=== PATIENT | female | born 1960 | race Caucasian/White ===

== ENCOUNTER → 2017-04-10 | Outpatient (REF) | payer OTHER, BC ==
[2017-04-10 19:50] LABS: INR 0.97
[2017-04-10 19:51] LABS: PARTIAL THROMBOPLASTIN TIME 33.2 SECONDS (26.8-37.9)
[2017-04-12 11:06] LABS: CARCINOEMBRYONIC ANTIGEN 0.6 NG/ML (<2.5)
== END ==
LOC: M LAB REF 16:31
DX: C50.919 Malignant neoplasm of unspecified site of unspecified female breast (principal)

== ENCOUNTER → 2017-04-16 | Outpatient (CLI) | payer OTHER ==
[~2017-04-16] MED LIST: LIDOCAINE 2% MDV 20 ML VIAL As Ordered; ceFAZolin 1GM INJ (J0690 PER 500MG) As Ordered
== END | disposition home or self-care (01) ==
LOC: M IRPRO 09:54
DX: C23 Malignant neoplasm of gallbladder (principal)
CPT/HCPCS: 36561

== ENCOUNTER → 2018-01-13 | Outpatient (CLI) | payer OTHER ==
[~2018-01-13] MED LIST changes: +GASTROGRAFIN SOLUTION 30ML (Q9963) As Ordered; +ISOVUE-370 76% 100ML VIAL (Q9967) As Ordered; -LIDOCAINE 2% MDV 20 ML VIAL As Ordered; -ceFAZolin 1GM INJ (J0690 PER 500MG) As Ordered
== END ==
LOC: M RAD 07:52
DX: C23 Malignant neoplasm of gallbladder (principal); Z97.8 Presence of other specified devices; Z98.890 Other specified postprocedural states
CPT/HCPCS: Q9963

== ENCOUNTER → 2018-09-15 | Outpatient (CLI) | payer OTHER ==
[~2018-09-15] MED LIST changes: +ACETAMINOPHEN 325 MG TAB As Ordered ONE; +EPIP0.3I2 IM; -GASTROGRAFIN SOLUTION 30ML (Q9963) As Ordered; -ISOVUE-370 76% 100ML VIAL (Q9967) As Ordered; +LIDOCAINE 1% MDV 20ML VIAL As Ordered ONE; +XARE15TA PO
[2018-09-15 10:57] VITALS: BP 119/69
--- NOTE | 2018-09-16 08:16 | REP ---
Ultrasound-guided liver biopsy This procedure was performed by Merlyn Leach [facility], [place], under the personal supervision of Dr. Harrington. The risks and benefits of the procedure were explained to the patient and informed consent was obtained both verbally and written. Directly prior to the start of the procedure, a formal timeout was done in the procedure room. The right lobe liver mass was localized using ultrasound guidance. The skin was prepped and draped in a sterile fashion. 15 ml of 1% lidocaine was used as a local anesthetic. Using ultrasound guidance a small skin chris was made and a 19/20 gauge coaxial needle biopsy system was inserted and advanced into the liver. 4 core biopsy samples were obtained and sent to the lab. The patient tolerated the procedure well and there were no immediate complications. After the appropriate monitored convalescence the patient was discharged home from the department. Reviewed by MICAH Millan 09/15/2018 10:18 A Electronically Signed by Cornelio Harrington MD 09/15/2018 12:55 P
== END ==
LOC: M IRPRO 08:07
PROVIDERS: ATTEND Internal Medicine Hematology & Oncology
DX: C22.0 Liver cell carcinoma (principal)

== ENCOUNTER → 2018-10-20 | Outpatient (CLI) | payer OTHER ==
[~2018-10-20] MED LIST changes: -ACETAMINOPHEN 325 MG TAB As Ordered ONE; -LIDOCAINE 1% MDV 20ML VIAL As Ordered ONE; +PROHANCE 279.3MG/ML 15ML VIAL (A9576) As Ordered ONE
--- NOTE | 2018-10-21 11:01 | REP ---
MRI ABDOMEN WITHOUT AND WITH INTRAVENOUS GADOLINIUM: HISTORY: Restage liver cancer. Metastatic gallbladder adenocarcinoma. COMPARISON: CT study August 04, 2018. TECHNIQUE: Axial and coronal T1- and T2-weighted scans include spin-echo, fast spin-echo, diffusion weighted, gradient-echo, in and [id number], and dynamic postcontrast T1 fat sat images. Gadolinium enhancement dose is 13 mL of intravenous ProHance. MRI FINDINGS: There is a 3.7 x 2.2 x 2.6 cm mass along the subcapsular margin of the liver anteriorly at the junction right of right and left lobes . This corresponds with the lesion visible on CT study from August 04, 2018 and the lesion biopsied by ultrasound-guided needle biopsy technique. There is some restricted diffusion within the lesion. There is a subtle contour indentation over the lesion which may be diaphragmatic slip. There is enhancement in and adjacent to the lesion on dynamically acquired sequential post contrast images in a somewhat irregular predominantly peripheral pattern. No other focal hepatic lesion is seen. No adrenal lesion is observed. Spleen is homogeneous. No renal mass is seen. No retroperitoneal adenopathy is observed. No pancreatic lesion is seen. IMPRESSION: There is an apparently solitary 3.7 cm heterogeneously enhancing mass in the periphery of the right lobe of the liver anteriorly corresponding to recently biopsied lesion. No other lesion is seen. Electronically Signed by Dustin Fields MD 10/21/2018 07:11 P
== END ==
LOC: M RAD 16:25
PROVIDERS: ATTEND Internal Medicine Hematology & Oncology
DX: C22.9 Malignant neoplasm of liver, not specified as primary or secondary (principal); Z86.000 Personal history of in-situ neoplasm of breast
CPT/HCPCS: A9576; C8902

== ENCOUNTER → 2018-11-10 | Outpatient (CLI) | payer OTHER ==
[~2018-11-10] MED LIST changes: +ELIQ2.5T PO; +GASTROGRAFIN SOLUTION 30ML (Q9963) As Ordered ONE; +ISOVUE-370 76% 100ML VIAL (Q9967) As Ordered ONE; +ONDA8TAB7 PO; +PROC10TA4 PO; -PROHANCE 279.3MG/ML 15ML VIAL (A9576) As Ordered ONE
--- NOTE | 2018-11-11 08:14 | REP ---
CT ABDOMEN AND PELVIS WITHOUT AND WITH IV CONTRAST: WITH ORAL CONTRAST. HISTORY: Restaging gallbladder carcinoma. Chemotherapy for recurrent hepatic metastatic disease. Most recent MRI study showed a 3.7 cm heterogeneously enhancing mass in the periphery of the right lobe of the liver anteriorly. Comparison CT study is from January 13, 2018. Comparison MRI exam is from October 20, 2018. CT CONTRAST DOSE: 75 mL of intravenous Isovue 370. CT FINDINGS: The recently identified 3.7 cm hepatic mass lesion is again seen. On today's noncontrast CT acquisition, the lesion measures 3.5 cm in greatest diameter with a small subcentimeter rim of surrounding low density edema. Postcontrast imaging shows heterogeneous enhancement. The lesion is essentially unchanged. No new low density lesion is appreciated. No new area of abnormal enhancement is seen within the liver. Spleen remains unremarkable. No adrenal lesion is seen. No pancreatic abnormalities observed. Kidneys enhance symmetrically and are morphologically intact. No retroperitoneal mass or adenopathy is seen. Uterus is unremarkable. No ovarian abnormality is seen. Urinary bladder is intact. No abdominal wall defect is observed. IMPRESSION: Heterogeneously enhancing mass in the anterior aspect of the liver is again seen essentially unchanged in size. No new hepatic lesion is seen. No other evidence of intra-abdominal recurrence or metastasis seen. Electronically Signed by Dustin Fields MD 11/11/2018 09:08 A
--- NOTE | 2018-11-11 09:04 | REP ---
CT CHEST WITH IV CONTRAST: HISTORY: Staging gallbladder carcinoma. COMPARISON STUDY: October 30, 2017. January 13, 2018 CT study is also reviewed. CT CONTRAST DOSE: 75 mL of intravenous Isovue 370. CT FINDINGS: There is an area of post radiation fibrosis along the anterolateral pleural surface of the right upper lobe unchanged in this patient with a remote prior history of breast carcinoma. There is a dystrophic area of soft tissue calcification in the right superior breast unchanged. A right-sided Ddrryu-U-Vihy catheter is noted. There is no evidence of axillary lymphadenopathy or chest wall mass lesion. No hilar or mediastinal mass or adenopathy is observed. No filling defect is seen in the pulmonary arterial tree today. There is no evidence of pleural effusion. No pulmonary nodule is appreciated. No bony destructive lesion is seen. IMPRESSION: No evidence of active disease in the chest. Electronically Signed by Dustin Fields MD 11/11/2018 09:13 A
== END ==
LOC: M RAD 12:41
PROVIDERS: ATTEND Internal Medicine Hematology & Oncology
DX: C23 Malignant neoplasm of gallbladder (principal)

== ENCOUNTER → 2019-03-26 | Outpatient (CLI) | payer OTHER ==
[~2019-03-26] MED LIST changes: +ONDA8TAB10 PO; -ONDA8TAB7 PO
--- NOTE | 2019-03-27 05:32 | REP ---
Clinical: History of gallbladder cancer. Technique: Axial contrast enhanced images from the thoracic inlet to the upper abdomen with coronal and sagittal re-formations using 100 ml Isovue 370 intravenous contrast material. Comparison: 11/10/2018. Findings: By apical and anterior subpleural right upper lobe scarring is again appreciated and unchanged. The lung shaw are otherwise well aerated and essentially clear. No focal consolidation. No effusion. No pneumothorax. Tracheobronchial tree is patent. No adenopathy. [id number] identified with tip in the SVC. Mediastinum demonstrates relatively normal thoracic aorta, pulmonary vasculature and heart/pericardium. Surrounding musculoskeletal structures without focal abnormality. Impression: Minimal stable scarring. No acute mediastinal or pleuroparenchymal process. No evidence for metastatic disease. Electronically Signed by Chino Chance MD 03/27/2019 05:23 A
--- NOTE | 2019-03-27 05:44 | REP ---
Clinical: History of gallbladder cancer. Technique: Axial precontrast, contrast enhanced, and delayed images of the abdomen using oral (per protocol) and 100 ml Isovue 370 intravenous contrast material with coronal and sagittal re-formations. Comparison: 11/10/2018. Findings: 3.7 cm ill-defined rim enhancing lesion along the periphery of the medial left hepatic lobe with central low density presumed necrotic changes (images 22 - 38) has increased from prior examination. No further hepatic lesions identified. Spleen, pancreas, bilateral adrenal glands and kidneys are normal. Evidence of prior cholecystectomy noted. Visualized enteric system is without obstruction or obvious acute inflammatory process. No retroperitoneal adenopathy. Abdominal aorta without aneurysm or dissection. No ascites. No free air. Musculoskeletal structures are intact. Impression: Somewhat heterogeneous rim enhancing lesion in the liver with central necrotic changes appears increased in size from prior examination. Correlation and follow up including PET-CT may be warranted for further investigation. Electronically Signed by Chino Chance MD 03/27/2019 05:35 A
== END ==
LOC: M RAD 15:19
PROVIDERS: ATTEND Internal Medicine Hematology & Oncology
DX: C23 Malignant neoplasm of gallbladder (principal)
CPT/HCPCS: 71260; 74170; Q9963; Q9967

== ENCOUNTER → 2019-04-08 | Outpatient (CLI) | payer OTHER ==
[~2019-04-08] MED LIST changes: -GASTROGRAFIN SOLUTION 30ML (Q9963) As Ordered ONE; -ISOVUE-370 76% 100ML VIAL (Q9967) As Ordered ONE
--- NOTE | 2019-04-08 19:56 | REP ---
PET/CT: History: Gallbladder adenocarcinoma. Monitoring response to chemotherapy treatment. Comparisons: No comparison PET-CT. Comparison is made with CT study abdomen and pelvis and chest from March 26, 2019. TECHNIQUE: 47 minutes following the intravenous injection of a 9.22 mCi dose of F-18 FDG, three-dimensional PET scintigraphy is acquired from the skull base to the proximal thighs. Triplanar noncontrast CT scanning is acquired through the same anatomic range for attenuation correction, and image registration with scan parameters optimized to minimize radiation exposure to the patient. PET scintigraphy and CT datasets were fused and displayed on a workstation with multiplanar and projection display capability. PET/CT Findings: Head and neck soft tissues show no suspicious abnormality. No abnormal hypermetabolic pulmonary parenchymal uptake is seen. There is no abnormal hilar or mediastinal hypermetabolic uptake. The patient's known hepatic mass is markedly hypermetabolic. Maximum standard uptake value is 17.60. On the accompanying CT study, this hypodense lesion measures approximately 4.3 cm. It is similar in appearance to the noncontrast portion of the March 26, 2019 study. No other abnormal hepatic hypermetabolic uptake focus is seen. No abnormal hypermetabolic adenopathy is noted in the abdomen. The study is otherwise unremarkable. Impression: The known hepatic mass is quite hypermetabolic. No other abnormal hypermetabolic uptake is seen. Electronically Signed by Dustin Fields MD 04/09/2019 08:04 A
== END ==
LOC: M PLARAD 13:16
PROVIDERS: ATTEND Internal Medicine Hematology & Oncology
DX: C23 Malignant neoplasm of gallbladder (principal)
CPT/HCPCS: 78815; A9552

== ENCOUNTER → 2019-06-05 | Outpatient (CLI) | payer OTHER ==
[~2019-06-05] MED LIST changes: +CISP50VI IV; +GASTROGRAFIN SOLUTION 30ML (Q9963) As Ordered ONE; +ISOVUE-370 76% 100ML VIAL (Q9967) As Ordered ONE; +[UNRECOGNIZED DRUG - CODE] IV
--- NOTE | 2019-06-05 11:32 | REP ---
REASON: Followup breast carcinoma. COMPARISON: Multiple, the latest, 03/26/2019. CONTRAST: 100 Isovue 370. Mediastinum and pulmonary fausto are stable showing no evidence of a mass or adenopathy. The tip of the Mediport device is again seen within the superior vena cava status quo. There are no pleural or pericardial effusions. For a description of the imaged upper abdomen, please seen CT abdomen and pelvis report made the same day. Bone window technique throughout the exam shows no significant change in the appearance of the imaged osseous structures. There is no CT evidence of a definite lytic or blastic osseous lesion. Evaluation of the lung shaw shows no evidence of significant change in the appearance of the residual pleuroparenchymal scarring seen on multiple priors. No definite new abnormal nodules, masses, or opacities have developed. IMPRESSION: Essentially stable CT examination of the chest showing no evidence of acute disease as described above. Electronically Signed by Rayo Roper DO 06/05/2019 01:39 P
--- NOTE | 2019-06-05 11:44 | REP ---
REASON: History of carcinoma of the breast. COMPARISON: Multiple, the latest 03/26/2019. CONTRAST: 100 mL Isovue 370. For a description of the lung bases, please seen CT examination of the chest report also made today. There is a heterogeneously and ring-enhancing lesion seen in the medial segment of the left lobe of the liver, which has increased in size from the latest prior when it measured approximately 3.8 x 1.9 cm with today's measurement being 4.2 x 3.1 cm. No additional enhancing hepatic masses are noted. The spleen, pancreas, adrenal glands, and kidneys are unchanged and again seen to be within normal limits. The abdominal aorta and para-aortic regions are unchanged. No periaortic adenopathy has developed. The intra-abdominal bowel loops and their mesenteries are again seen to be within normal limits. There is no free fluid or free air. There is a tiny midline ventral hernia in the supraumbilical region, the aperture of which is approximately 1 cm and through which only a small amount of mesentery protrudes. Bone window technique throughout the exam shows the osseous structures to be stable and intact. IMPRESSION: 1. The hepatic lesion, as described above, has increased in size suspicious for worsening metastasis. This needs to be correlated clinically with appropriate followup. Certainly, an hepatic abscess could potentially be responsible or at least in part responsible for the findings as well. Given the patient's history, metastatic disease worsening is favored. 2. There is tiny ventral hernia as described above. 3. Other findings as described above. Electronically Signed by Rayo Roper DO 06/05/2019 01:39 P
== END ==
LOC: M RAD 09:15
PROVIDERS: ATTEND Internal Medicine Hematology & Oncology
DX: Z01.818 Encounter for other preprocedural examination (principal); C23 Malignant neoplasm of gallbladder; Z85.3 Personal history of malignant neoplasm of breast
CPT/HCPCS: 71260; 74170; Q9963; Q9967

== ENCOUNTER → 2019-10-15 | Outpatient (CLI) | payer OTHER ==
[~2019-10-15] MED LIST changes: +ACET650T61 PO; -ISOVUE-370 76% 100ML VIAL (Q9967) As Ordered ONE; +ISOVUE-370 76% 100ML VIAL As Ordered ONE; +NEUR300C PO
--- NOTE | 2019-11-27 09:38 | REP ---
CT ABDOMEN AND PELVIS WITH IV AND ORAL CONTRAST HISTORY: Gallbladder cancer status post SBRT therapy. CT CONTRAST DOSE: 100 mL of intravenous Isovue-370. CT FINDINGS: Digital preliminary cassandra developer radiograph demonstrates mild gaseous distention of the stomach. There is a small right pleural effusion, which is a new finding when compared with the 06/05/2019 study. No pericardial or left pleural effusion is seen. There is volume loss in the treated portion of the left lobe of the liver. There is a 2.4 cm low density lesion here, which is decreased in size from 06/05/2019, when it measured 4.2 cm. This is consistent with posttreatment change. There is a granulomatous calcification along the liver capsule adjacent to this unchanged. There is some non-mass like low density in the adjacent liver parenchyma. No biliary ductal dilation is seen. No new liver mass is observed. However, there is celiac access lymphadenopathy, which has developed. There is a superior celiac node measuring 19 x 19 mm. A portacaval lymph node is seen to be enlarged measuring 15 x 21 mm. There is an enlarged lymph node between the head of the pancreas and the inferior vena cava, which is similar in size, 26 x 17 mm. No other adenopathy is appreciated. No splenic lesion or adrenal lesion is seen. No pancreatic mass is observed. No uterine or ovarian abnormality is seen. Urinary bladder is intact. Small and large bowel loops are unremarkable in the abdomen and pelvis. Normal appendix is seen in the right central abdomen. No ascites. IMPRESSION: Posttreatment changes in the liver. New small right pleural effusion. New celiac access and portacaval lymphadenopathy. Metastasis is suspected. MTDD
--- NOTE | 2019-11-27 09:39 | REP ---
CT CHEST WITH IV CONTRAST HISTORY: Gallbladder carcinoma status post radiation therapy. CT CONTRAST DOSE: 100 mL of intravenous Isovue-370. COMPARISON: 06/05/2019. CT FINDINGS: There is a new small right pleural effusion. There is a right-sided Infusaport catheter. There is a large calcification in the right superior breast soft tissues. Some subpleural fibrosis is seen in the right upper lobe anteriorly. These two findings are unchanged. There is mild linear density in the left lower lobe consistent with plate-like atelectasis. This is a new finding. No pulmonary nodule or mass lesion is seen. No hilar or mediastinal mass or adenopathy is observed. No vascular abnormality is seen in the mediastinum. A low density lesion is again noted in the liver improved in size. This will be described in detail on the CT abdomen study. IMPRESSION: New small right pleural effusion and plate-like atelectasis left lower lobe. No pulmonary nodule or mass lesion seen. MTDD
== END ==
LOC: M RAD 09:20
PROVIDERS: ATTEND Radiology Radiation Oncology
DX: C23 Malignant neoplasm of gallbladder (principal); J90 Pleural effusion, not elsewhere classified; R59.9 Enlarged lymph nodes, unspecified; R91.8 Other nonspecific abnormal finding of lung field; Z95.828 Presence of other vascular implants and grafts
CPT/HCPCS: 71260; 74177; J1642; Q9963; Q9967

== ENCOUNTER → 2019-12-07 | Outpatient (CLI) | payer OTHER ==
[~2019-12-07] MED LIST changes: -ACET650T61 PO; -GASTROGRAFIN SOLUTION 30ML (Q9963) As Ordered ONE; -ISOVUE-370 76% 100ML VIAL As Ordered ONE
--- NOTE | 2019-12-14 16:45 | REP ---
PET/CT HISTORY: Monitoring response to chemotherapy. Primary gallbladder malignancy status post resection with recurrence status post chemotherapy and SBRT. COMPARISON: Comparison CT study of the chest, abdomen, and pelvis October 15, 2019. Comparison PET/CT April 08, 2019. TECHNIQUE: Sixty minutes following the intravenous injection of an 8.06 millicurie dose of F18 FDG, three dimensional PET/CT imaging was acquired from the skull base to the proximal thighs. PET/CT FINDINGS: The previously noted hypermetabolic mass in the left lobe of the liver seen on the PET/CT study from April 08, 2019, has resolved post SBRT. The recent CT study of the abdomen from October 15, 2019, showed at least three suspicious enlarged celiac axis lymph nodes in the upper abdomen, portacaval region. These appear to have regressed and are barely visible now on todays accompanying CT study. On todays PET/CT, there is minimally hypermetabolic uptake at the site of the portacaval node, maximum standard uptake value 2.98. There is minimally hypermetabolic uptake adjacent to the duodenum at the site of one of the other lymph nodes, maximum standard uptake value 2.93. These nodes are all but resolved morphologically. However, todays PET/CT study shows an increase in the right pleural effusion, and there is mildly increased FDG accumulation in the right pleural space, maximum standard uptake value ranges up to 2.54 in the right pleural space. There is a stable area of somewhat nodular subpleural fibrosis in the right upper lobe post treatment for this patient's remote prior breast cancer. Nonhypermetabolic uptake is seen in this region, maximum SUV value 1.48. IMPRESSION: The recently identified hypermetabolic liver mass and the more recently identified suspicious celiac axis and portacaval adenopathy have both regressed. There is minimal residual hypermetabolic uptake in the area of the celiac access nodes. There has been an interval increase in the size of the right pleural effusion, and there is some low level hypermetabolic uptake in the right pleural space. Otherwise negative. MTDD
== END ==
LOC: M PLARAD 10:27
PROVIDERS: ATTEND Radiology Radiation Oncology
DX: C23 Malignant neoplasm of gallbladder (principal); Z92.21 Personal history of antineoplastic chemotherapy; Z92.3 Personal history of irradiation
CPT/HCPCS: 78815; A9552

== ENCOUNTER → 2020-01-06 | Outpatient (CLI) | payer OTHER ==
[~2020-01-06] MED LIST changes: +ACET650T61 PO; +LIDOCAINE 1% MDV 20ML VIAL As Ordered ONE
--- NOTE | 2020-01-06 12:58 | REP ---
INDICATION: RT PLEURAL EFFUSION/FILE ROOM. COMPARISON: CT 10/15/2019. TECHNIQUE: Real-time sonographic evaluation of pleural space performed bilaterally prior to a scheduled right thoracentesis. FINDINGS: Only trace pleural fluid is visualized in the right pleural space at the costophrenic angle. This is not amenable to thoracentesis, as the risks outweigh the benefits. IMPRESSION: Trace right pleural effusion. The scheduled right thoracentesis is canceled. <Electronically signed by Cornelio Harrington > 01/06/20 [id number]
== END ==
LOC: M IRPRO 11:55
PROVIDERS: ATTEND Specialist
DX: J90 Pleural effusion, not elsewhere classified (principal); Z53.09 Procedure and treatment not carried out because of other contraindication; J44.9 Chronic obstructive pulmonary disease, unspecified; I10 Essential (primary) hypertension; E11.9 Type 2 diabetes mellitus without complications; G47.33 Obstructive sleep apnea (adult) (pediatric); Z88.2 Allergy status to sulfonamides; Z79.01 Long term (current) use of anticoagulants; Z88.8 Allergy status to other drugs, medicaments and biological substances

== ENCOUNTER → 2020-04-11 | Outpatient (CLI) | payer OTHER ==
[~2020-04-11] MED LIST changes: +GASTROGRAFIN SOLUTION 30ML (Q9963) As Ordered ONE; +ISOVUE-370 76% 100ML VIAL As Ordered ONE; -LIDOCAINE 1% MDV 20ML VIAL As Ordered ONE
--- NOTE | 2020-04-12 08:55 | REP ---
INDICATION: GB CA. COMPARISON: 10/15/2019 TECHNIQUE: Axial contrast-enhanced images from the lung bases to the pubic symphysis using oral and 100 cc Isovue 370 intravenous contrast material. Coronal and sagittal reformations obtained along with delayed images of the abdomen. This CT examination was performed using the following dose reduction techniques: Automated exposure control, adjustment of mA and/or kv according to the patient's size, and the use of iterative reconstruction technique. FINDINGS: Current examination demonstrates a small amount of suspected perihepatic fluid along the anterior margin of the liver with an adjacent inseparable fluid collection along the subcapsular medial left lobe which currently measures 14 mm in maximal diameter and has decreased in size from prior examination when measuring 27 mm diameter. This may represent small resolving hepatic abscess, but the adjacent perihepatic fluid appears slightly more heterogeneous and minimally increased from prior examination concerning for active pathology. Spleen, pancreas, bilateral adrenal glands and kidneys are normal. Previously identified adenopathy in the celiac axis has resolved. The enteric system is without obstruction or acute inflammatory process. Normal terminal ileum and appendix are identified in the right lower quadrant. Scattered colonic and sigmoid diverticula noted without acute diverticulitis. Pelvis demonstrates normal bladder and age-appropriate uterus/adnexa. No ascites. No free air. No obvious intraperitoneal or retroperitoneal adenopathy. Abdominal aorta without aneurysm or dissection. Musculoskeletal structures appear intact and without acute osseous abnormality lung bases are relatively clear and the previously noted small right pleural effusion has resolved. IMPRESSION: 1. The small subcapsular collection within the left hepatic lobe has decreased in size. However, there is subtle increase in the minimally high dense subcapsular hepatic fluid. Active pathology including malignancy/metastatic disease related to known gallbladder cancer cannot be excluded. 2. Celiac axis adenopathy has resolved. No new adenopathy or abdominopelvic mass lesion noted. 3. Nonacute findings as above. No ascites. No focal inflammatory stranding. No adenopathy. No free air. <Electronically signed by Chino Chance > 04/12/20 [id number]
== END ==
LOC: M RAD 11:05
PROVIDERS: ATTEND Specialist
DX: C23 Malignant neoplasm of gallbladder (principal)
CPT/HCPCS: 74177; Q9963; Q9967

== ENCOUNTER → 2020-06-06 | Outpatient (CLI) | payer OTHER ==
[~2020-06-06] MED LIST changes: -GASTROGRAFIN SOLUTION 30ML (Q9963) As Ordered ONE; -ISOVUE-370 76% 100ML VIAL As Ordered ONE; +PROHANCE 279.3MG/ML 15ML VIAL As Ordered ONE
--- NOTE | 2020-06-06 17:53 | REP ---
INDICATION: LIVER METS. COMPARISON: CT 04/11/2020 and 10/15/2019, PET-CT 12/07/2019. TECHNIQUE: Multiple sequences obtained in the axial coronal planes prior to and following the intravenous administration of 13 mL ProHance. FINDINGS: Once again there are post treatment changes in the liver. There is a nonenhancing cystic area at the anterior margin of the medial segment of the left lobe which continues has decreased in size compared to prior CT scan 10/15/2019, although it is not significantly changed since the most recent CT of 04/11/2020. There is mild diffuse enhancement of the anterior liver capsule, which gradually increases on more delayed post-contrast sequences. This is most consistent with post treatment fibrosis. No suspicious arterial phase enhancement is seen and there is no enhancing mass. There is a tiny right pleural effusion. Spleen, adrenals, pancreas and kidneys are unremarkable and unchanged. No adenopathy or free fluid is seen in the abdomen. There is no evidence of biliary dilatation. IMPRESSION: Once again there are post treatment changes anteriorly predominantly involving the medial segment of the left lobe of the liver as discussed above. Mild ill-defined enhancement in this region gradually increases on more delayed post-contrast images consistent with fibrotic changes along the anterior capsule of the liver. There is no suspicious enhancing mass or arterial phase enhancement. <Electronically signed by Cornelio Harrington > 06/06/20 [id number]
== END ==
LOC: M RAD 14:48
PROVIDERS: ATTEND Radiology Radiation Oncology
DX: C23 Malignant neoplasm of gallbladder (principal); R91.8 Other nonspecific abnormal finding of lung field
CPT/HCPCS: 74183; A9576

== ENCOUNTER → 2020-11-25 | Outpatient (CLI) | payer OTHER ==
[~2020-11-25] MED LIST changes: +ACET325C5 PO
--- NOTE | 2020-11-25 11:00 | REP ---
INDICATION: GB CANCER. COMPARISON: 06/06/2020. TECHNIQUE: Multiple sequences obtained in the axial and coronal planes prior to and following the intravenous administration of 13 mL ProHance. FINDINGS: Post treatment changes in the liver appear stable. There is no liver mass identified. There is no abnormal enhancement. Spleen is normal in size with no intrinsic abnormality. The adrenal glands and pancreas are normal. The kidneys demonstrate no abnormality. I see no adenopathy or free fluid in the abdomen. The patient has had a cholecystectomy. There is no biliary dilatation. IMPRESSION: Post treatment changes of the liver with no suspicious enhancing mass or arterial phase enhancement. <Electronically signed by Cornelio Harrington > 11/25/20 [id number]
== END ==
LOC: M RAD 08:47
PROVIDERS: ATTEND Radiology Radiation Oncology
DX: C23 Malignant neoplasm of gallbladder (principal); Z90.49 Acquired absence of other specified parts of digestive tract
CPT/HCPCS: 74183; A9576

== ENCOUNTER → 2021-06-01 | Outpatient (CLI) | payer OTHER ==
[~2021-06-01] MED LIST changes: +ONDA-84 PO; -ONDA8TAB10 PO; -PROC10TA4 PO; +PROC10TA5 PO
== END ==
LOC: M RAD 07:15
PROVIDERS: ATTEND Radiology Radiation Oncology
DX: C23 Malignant neoplasm of gallbladder (principal); Z90.49 Acquired absence of other specified parts of digestive tract
CPT/HCPCS: 74183; A9576

== ENCOUNTER → 2021-08-29 | Outpatient (POV) | payer OTHER ==
[~2021-08-29] VITALS: Ht 165.1 cm; Wt 65.9 kg
[~2021-08-29] MED LIST changes: -PROHANCE 279.3MG/ML 15ML VIAL As Ordered ONE
[2021-08-29 07:50] VITALS: BP 142/86
== END ==
LOC: M IRPOV 07:43
PROVIDERS: ATTEND Radiology Diagnostic Radiology
DX: Z45.2 Encounter for adjustment and management of vascular access device (principal); Z79.01 Long term (current) use of anticoagulants; Z85.09 Personal history of malignant neoplasm of other digestive organs; Z88.1 Allergy status to other antibiotic agents; Z88.2 Allergy status to sulfonamides; Z92.21 Personal history of antineoplastic chemotherapy; Z91.010 Allergy to peanuts

== ENCOUNTER → 2021-09-05 | Outpatient (CLI) | payer OTHER | LOC: M LABSMTC 09:09 | PROVIDERS: ATTEND Anesthesiology | DX: Z01.812 Encounter for preprocedural laboratory examination (principal); Z20.822 Contact with and (suspected) exposure to COVID-19 ==

== ENCOUNTER → 2021-09-21 | Outpatient (CLI) | payer OTHER ==
[~2021-09-21] MED LIST changes: +ASPI81CH33 PO; +LIDOCAINE 1% MDV 20ML VIAL As Ordered ONE; +MIDAZOLAM INJ 2MG/2ML VIAL (J2250 PER 1MG) As Ordered ONE; +NS 1,000 ML IV SCH; +ceFAZolin 2 GM/D5W 50 ML IV BAG (J0690 PER 500MG) As Ordered ONE; +ceFAZolin SOD 2 GM in IV 1 EA IV ONE; +diphenhydrAMINE 50MG/ML VIAL (J1200) As Ordered ONE; +fentaNYL 100 MCG/2 ML INJECTION As Ordered ONE
[2021-09-21 14:40] VITALS: BP 110/63
== END ==
LOC: M IRPRO 10:30
PROVIDERS: ATTEND Radiology Diagnostic Radiology
DX: C78.7 Secondary malignant neoplasm of liver and intrahepatic bile duct (principal); Z45.2 Encounter for adjustment and management of vascular access device; Z79.82 Long term (current) use of aspirin; Z88.1 Allergy status to other antibiotic agents; Z88.2 Allergy status to sulfonamides; Z88.8 Allergy status to other drugs, medicaments and biological substances; Z91.018 Allergy to other foods
CPT/HCPCS: 36590; 99152; J0690; J1200; J1644; J2250; J3010

== ENCOUNTER → 2021-10-11 | Outpatient (CLI) | payer OTHER ==
[~2021-10-11] MED LIST changes: -LIDOCAINE 1% MDV 20ML VIAL As Ordered ONE; -MIDAZOLAM INJ 2MG/2ML VIAL (J2250 PER 1MG) As Ordered ONE; -NS 1,000 ML IV SCH; +PROHANCE 279.3MG/ML 15ML VIAL ONE; -ceFAZolin 2 GM/D5W 50 ML IV BAG (J0690 PER 500MG) As Ordered ONE; -ceFAZolin SOD 2 GM in IV 1 EA IV ONE; -diphenhydrAMINE 50MG/ML VIAL (J1200) As Ordered ONE; -fentaNYL 100 MCG/2 ML INJECTION As Ordered ONE
== END ==
LOC: M PLAIMG 12:58
PROVIDERS: ATTEND Nurse Practitioner
DX: C23 Malignant neoplasm of gallbladder (principal)

== ENCOUNTER → 2022-01-05 | Outpatient (CLI) | payer OTHER ==
[~2022-01-05] MED LIST changes: -PROHANCE 279.3MG/ML 15ML VIAL ONE
== END ==
LOC: M WHC 10:12
PROVIDERS: ATTEND Specialist
DX: R74.8 Abnormal levels of other serum enzymes (principal); M85.89 Other specified disorders of bone density and structure, multiple sites; Z90.49 Acquired absence of other specified parts of digestive tract

== ENCOUNTER → 2022-03-06 | Outpatient (CLI) | payer OTHER ==
[~2022-03-06] MED LIST changes: +PROHANCE 279.3MG/ML 5ML VIAL ONE
== END ==
LOC: M PLAIMG 07:38
PROVIDERS: ATTEND Radiology Radiation Oncology
DX: C23 Malignant neoplasm of gallbladder (principal); Z90.49 Acquired absence of other specified parts of digestive tract
CPT/HCPCS: 74183; A9576

== ENCOUNTER → 2022-05-03 | Outpatient (CLI) | payer OTHER ==
[~2022-05-03] MED LIST changes: +BONI1TAB PO; -PROHANCE 279.3MG/ML 5ML VIAL ONE
== END ==
LOC: M LABSMTC 11:31
PROVIDERS: ATTEND Anesthesiology
DX: Z01.812 Encounter for preprocedural laboratory examination (principal)

== ENCOUNTER → 2022-05-03 | Outpatient (REF) | LOC: M LABSMTC 07:57 | PROVIDERS: ATTEND Anesthesiology | DX: Z53.9 Procedure and treatment not carried out, unspecified reason (principal) ==

== ENCOUNTER 2022-05-08 09:20 | Day surgery (SDC) | payer OTHER ==
[~2022-05-08] VITALS: Ht 165.1 cm; Wt 63.5 kg
[~2022-05-08 09:20] MED LIST changes: +NS 1,000 ML IV ONE
[2022-05-08] MEDS ORDERED: propofoL 200 MG/20 ML VIAL As Ordered ONE ×2 (11:08→11:16)
[2022-05-08] MEDS ORDERED: LIDOCAINE 2% 100MG/5ML SDV (FOR ANES.) As Ordered ONE (11:08)
[2022-05-08 11:41] VITALS: BP 123/77
== END 2022-05-08 11:50 | disposition home or self-care (01) ==
LOC: M OPP 09:20
PROVIDERS: ATTEND Internal Medicine Gastroenterology
DX: Z12.11 Encounter for screening for malignant neoplasm of colon (principal); Z80.0 Family history of malignant neoplasm of digestive organs; K63.5 Polyp of colon; K57.30 Diverticulosis of large intestine without perforation or abscess without bleeding; K64.4 Residual hemorrhoidal skin tags; K64.8 Other hemorrhoids; Z79.82 Long term (current) use of aspirin; Z79.899 Other long term (current) drug therapy; Z88.1 Allergy status to other antibiotic agents; Z88.2 Allergy status to sulfonamides; Z91.018 Allergy to other foods; Z85.05 Personal history of malignant neoplasm of liver; Z85.3 Personal history of malignant neoplasm of breast; Z85.09 Personal history of malignant neoplasm of other digestive organs; Z86.718 Personal history of other venous thrombosis and embolism; Z92.3 Personal history of irradiation; Z80.3 Family history of malignant neoplasm of breast

== ENCOUNTER → 2022-10-23 | Outpatient (CLI) | payer OTHER ==
[~2022-10-23] MED LIST changes: -NS 1,000 ML IV ONE; +PROHANCE 279.3MG/ML 15ML VIAL As Ordered ONE
== END ==
LOC: M RAD 12:23
PROVIDERS: ATTEND Radiology Radiation Oncology
DX: C23 Malignant neoplasm of gallbladder (principal); Z90.49 Acquired absence of other specified parts of digestive tract
CPT/HCPCS: 74183; A9576

== ENCOUNTER → 2024-04-28 | Outpatient (CLI) | payer OTHER ==
[~2024-04-28] VITALS: Ht 165.1 cm; Wt 57.0 kg
[~2024-04-28] MED LIST changes: +IBUP200C25 PO; +LIDO30CR18 TOP; +LIDOCAINE 1% MDV 20ML VIAL As Ordered ONE; +ONDA-284 PO; -PROHANCE 279.3MG/ML 15ML VIAL As Ordered ONE
[2024-04-28 10:20] VITALS: TEMP 98.7
[2024-04-28] MEDS: NS (Normal Saline) 0.9% 1,000 ML IV SCH (10:40)
[2024-04-28] MEDS: ceFAZolin SOD 2 GM in IV 1 EA IV ONE (12:05)
[2024-04-28] MEDS: MIDAZOLAM INJ 2MG/2ML VIAL IV PRN (12:25)
[2024-04-28] MEDS: fentaNYL 100 MCG/2 ML INJECTION IV PRN (12:27)
[2024-04-28] MEDS: LIDOCAINE 1% MDV 20ML VIAL IM ONE (12:28)
[2024-04-28] MEDS: SODIUM CHLORIDE 0.9% INJ 10 ML SYR IV SCH (12:37)
[2024-04-28 13:27] VITALS: BP 118/76; O2SAT 99
== END ==
LOC: M IRPRO 09:57
PROVIDERS: ATTEND Specialist
DX: C23 Malignant neoplasm of gallbladder (principal)
CPT/HCPCS: 36561; 99152; J0690; J1642; J2250; J3010

== ENCOUNTER → 2024-05-05 | Outpatient (CLI) | payer OTHER ==
[~2024-05-05] MED LIST changes: -LIDOCAINE 1% MDV 20ML VIAL As Ordered ONE
== END ==
LOC: M PLARAD 08:17
PROVIDERS: ATTEND Specialist
DX: C23 Malignant neoplasm of gallbladder (principal)
CPT/HCPCS: 78815; A9552

== ENCOUNTER → 2024-06-24 | Outpatient (CLI) | payer OTHER | LOC: M ONCR 15:05 | PROVIDERS: ATTEND General Practice | DX: C79.51 Secondary malignant neoplasm of bone (principal); C78.7 Secondary malignant neoplasm of liver and intrahepatic bile duct; C23 Malignant neoplasm of gallbladder; Z90.49 Acquired absence of other specified parts of digestive tract; Z85.3 Personal history of malignant neoplasm of breast; Z79.82 Long term (current) use of aspirin; Z79.899 Other long term (current) drug therapy; Z88.1 Allergy status to other antibiotic agents; Z88.2 Allergy status to sulfonamides; Z91.018 Allergy to other foods; Z92.21 Personal history of antineoplastic chemotherapy; Z92.29 Personal history of other drug therapy; Z92.3 Personal history of irradiation ==

== ENCOUNTER → 2024-07-09 | Outpatient (CLI) | payer OTHER ==
[~2024-07-09] MED LIST changes: +GADOXETATE DISODIUM 2.5MMOL/10ML VIAL (EOVIST) As Ordered ONE; +VITACAP8 PO
== END ==
LOC: M RAD 10:36
PROVIDERS: ATTEND Specialist
DX: C23 Malignant neoplasm of gallbladder (principal); Z90.49 Acquired absence of other specified parts of digestive tract; C78.7 Secondary malignant neoplasm of liver and intrahepatic bile duct; R18.8 Other ascites
CPT/HCPCS: 74183; A9581

== ENCOUNTER 2024-07-17 09:17 | Emergency (ER) | payer OTHER ==
[~2024-07-17] VITALS: Ht 160 cm; Wt 54.4 kg
[~2024-07-17 09:17] MED LIST changes: -GADOXETATE DISODIUM 2.5MMOL/10ML VIAL (EOVIST) As Ordered ONE
[2024-07-17] MEDS ORDERED: HOME MED LIST COMPLETE! XX SCH (11:30)
[2024-07-17 12:15] VITALS: TEMP 97.9
[2024-07-17 12:29] VITALS: BP 118/68
[2024-07-17 12:46] VITALS: O2SAT 100
== END 2024-07-17 12:50 | disposition short-term general hospital (02) ==
LOC: M ED 09:17
DX: K83.1 Obstruction of bile duct (principal); C78.7 Secondary malignant neoplasm of liver and intrahepatic bile duct; C23 Malignant neoplasm of gallbladder; Z85.3 Personal history of malignant neoplasm of breast; Z86.711 Personal history of pulmonary embolism; Z86.718 Personal history of other venous thrombosis and embolism; Z79.82 Long term (current) use of aspirin; Z79.899 Other long term (current) drug therapy; Z88.2 Allergy status to sulfonamides; Z91.010 Allergy to peanuts

== ENCOUNTER → 2024-07-22 | Outpatient (POV) | payer OTHER ==
[~2024-07-22] VITALS: Ht 165.1 cm; Wt 58.2 kg
[~2024-07-22] MED LIST changes: +ELIQ5TAB
[2024-07-22 15:50] VITALS: BP 124/68; O2SAT 100
== END ==
LOC: M IRPOV 14:00
PROVIDERS: ATTEND Radiology Diagnostic Radiology
DX: C78.7 Secondary malignant neoplasm of liver and intrahepatic bile duct (principal); E80.6 Other disorders of bilirubin metabolism; R18.8 Other ascites; Z85.09 Personal history of malignant neoplasm of other digestive organs; Z92.21 Personal history of antineoplastic chemotherapy

== ENCOUNTER 2024-08-14 08:22 | Outpatient (RCR) | payer OTHER ==
[2017-12-19] MEDS: SODIUM CHLORIDE 0.9% INJ 10 ML SYR IV PRN (08:02)
[2018-02-03 11:10] VITALS: BP 132/87; TEMP 96.7; O2SAT 99
[2018-02-03] MEDS: SODIUM CHLORIDE 0.9% INJ 10 ML SYR IV PRN (12:15)
[2018-03-03] MEDS: SODIUM CHLORIDE 0.9% INJ 10 ML SYR IV SCH (09:59)
[2018-03-31] MEDS: SODIUM CHLORIDE 0.9% INJ 10 ML SYR IV PRN (08:24)
[2018-05-01] MEDS: SODIUM CHLORIDE 0.9% INJ 10 ML SYR IV PRN (10:43)
[2018-06-03 07:56] VITALS: BP 118/82; TEMP 97.5; O2SAT 99
[2018-06-03 08:12] LABS: HEMATOCRIT 40.9 % (36.0-47.0); HEMOGLOBIN 13.2 g/dl (12.0-15.5); MEAN CORPUSCULAR HEMOGLOBIN 31.6 pg (27.0-33.0); MEAN CORPUSCULAR HGB CONC 32.3 g/dl (32.0-36.5); MEAN CORPUSCULAR VOLUME 97.8 fl (80.0-96.0); NEUTROPHILS # 1.3 10^3/uL (1.8-7.7); NEUTROPHILS % 49.3 % (36.0-66.0); RED BLOOD COUNT 4.18 10^6/uL (4.00-5.40); WHITE BLOOD COUNT 2.7 10^3/uL (4.0-10.0)
[2018-06-03] MEDS: SODIUM CHLORIDE 0.9% INJ 10 ML SYR IV PRN (09:09)
[2018-06-03 09:34] LABS: ALBUMIN 4.2 GM/DL (3.5-5.2); ALKALINE PHOSPHATASE 89 U/L (44-147); BLOOD UREA NITROGEN 14 MG/DL (6-20); CALCIUM LEVEL 8.8 MG/DL (8.5-10.2); CARBON DIOXIDE LEVEL 25 MEQ/L (23-31); CHLORIDE LEVEL 106 MMOL/L (98-107); CREATININE FOR GFR 1.04 MG/DL (0.60-1.10); GLOMERULAR FILTRATION RATE 58.1 (>51); GLUCOSE, FASTING 149 MG/DL (70-105); POTASSIUM SERUM 3.7 MMOL/L (3.5-5.1); SODIUM LEVEL 141 MMOL/L (135-145); TOTAL PROTEIN 6.9 GM/DL (6.4-8.3)
[2018-07-01] MEDS: SODIUM CHLORIDE 0.9% INJ 10 ML SYR IV PRN (14:59)
[2018-08-11] MEDS: SODIUM CHLORIDE 0.9% INJ 10 ML SYR IV PRN (10:00)
[2018-08-18 08:04] VITALS: BP 127/84; TEMP 96.7; O2SAT 99
[2018-09-08] MEDS: SODIUM CHLORIDE 0.9% INJ 10 ML SYR IV PRN (14:41)
[2018-09-08 15:08] LABS: INR 0.99; PROTHROMBIN TIME 12.8 SECONDS (11.8-14.0)
[2018-09-08 15:10] LABS: PARTIAL THROMBOPLASTIN TIME 48.5 SECONDS (25.0-38.4)
[2018-09-23 15:29] VITALS: BP 117/78; TEMP 96.8; O2SAT 99
[2018-10-10 10:27] VITALS: BP 126/70; TEMP 97.7; O2SAT 97
[2018-10-27 08:25] VITALS: BP 149/86; TEMP 97.5; O2SAT 97
[2018-10-27 09:05] LABS: HEMATOCRIT 41.6 % (36.0-47.0); HEMOGLOBIN 13.6 g/dl (12.0-15.5); MEAN CORPUSCULAR HGB CONC 32.7 g/dl (32.0-36.5); MEAN CORPUSCULAR VOLUME 94.8 fl (80.0-96.0); PLATELET COUNT, AUTOMATED 172 10^3/uL (150-450); RED BLOOD COUNT 4.39 10^6/uL (4.00-5.40); WHITE BLOOD COUNT 5.2 10^3/uL (4.0-10.0)
[2018-10-27 09:28] LABS: ALBUMIN 3.7 GM/DL (3.2-5.2); ALKALINE PHOSPHATASE 123 U/L (45-117); ALT/SGPT 18 U/L (12-78); AST/SGOT 12 U/L (7-37); BILIRUBIN,TOTAL 0.3 MG/DL (0.2-1.0); BLOOD UREA NITROGEN 15 MG/DL (7-18); CALCIUM LEVEL 8.9 MG/DL (8.5-10.1); CARBON DIOXIDE LEVEL 27 MEQ/L (21-32); CHLORIDE LEVEL 106 MEQ/L (98-107); CREATININE FOR GFR 1.01 MG/DL (0.55-1.30); GLOMERULAR FILTRATION RATE > 60.0 (>51); GLUCOSE, FASTING 128 MG/DL (70-100); POTASSIUM SERUM 3.8 MEQ/L (3.5-5.1); SODIUM LEVEL 140 MEQ/L (136-145); TOTAL PROTEIN 7.7 GM/DL (6.4-8.2)
[2018-10-27 10:00] LABS: BASO % 0.6 % (0.0-1.0); EOS # 0.1 10^3/uL (0.0-0.50); EOS % 1.1 % (0.0-3.0); LYMPH # 1.4 10^3/uL (1.5-4.5); LYMPH % 25.8 % (24.0-44.0); MONO # 0.4 10^3/uL (0.0-0.8); MONO % 7.5 % (0.0-5.0); NEUTROPHILS # 3.5 10^3/uL (1.8-7.7); NEUTROPHILS % 64.6 % (36.0-66.0)
[2018-10-27] MEDS: FOSAPREPITANT PERIPHERAL LINE 30 MIN INFUSION (PREMIX) IV ONE (10:00)
[2018-10-27] MEDS: PALONOSETRON 250 MCG IV IV ONE (10:00)
[2018-10-27] MEDS: dexameTHASONE 10 MG IV IV ONE (11:36)
[2018-10-27] MEDS: SODIUM CHLORIDE 0.9% INJ 10 ML SYR IV PRN (13:55)
[2018-11-04 08:26] LABS: HEMATOCRIT 42.3 % (36.0-47.0); HEMOGLOBIN 13.9 g/dl (12.0-15.5); LYMPH % 34.9 % (24.0-44.0); MEAN CORPUSCULAR HEMOGLOBIN 31.4 pg (27.0-33.0); MEAN CORPUSCULAR HGB CONC 32.9 g/dl (32.0-36.5); MEAN CORPUSCULAR VOLUME 95.7 fl (80.0-96.0); NEUTROPHILS # 2.8 10^3/uL (1.8-7.7); NEUTROPHILS % 56.8 % (36.0-66.0); RED BLOOD COUNT 4.42 10^6/uL (4.00-5.40); WHITE BLOOD COUNT 4.9 10^3/uL (4.0-10.0)
[2018-11-04 08:39] LABS: ALBUMIN 4.4 GM/DL (3.5-5.2); ALKALINE PHOSPHATASE 120 U/L (44-147); BLOOD UREA NITROGEN 10 MG/DL (6-20); CARBON DIOXIDE LEVEL 26 MEQ/L (23-31); CHLORIDE LEVEL 105 MMOL/L (98-107); CREATININE FOR GFR 0.92 MG/DL (0.60-1.10); GLOMERULAR FILTRATION RATE > 60.0 (>51); GLUCOSE, FASTING 120 MG/DL (70-105); SODIUM LEVEL 139 MMOL/L (135-145); TOTAL PROTEIN 7.7 GM/DL (6.4-8.3)
[2018-11-04 08:44] VITALS: BP 148/86; TEMP 97.9; O2SAT 98
[2018-11-04] MEDS: FOSAPREPITANT PERIPHERAL LINE 30 MIN INFUSION (PREMIX) IV ONE (10:42)
[2018-11-04] MEDS: dexameTHASONE 10 MG IV IV ONE (10:43)
[2018-11-04] MEDS: PALONOSETRON 250 MCG IV IV ONE (10:43)
[2018-11-04] MEDS: SODIUM CHLORIDE 0.9% INJ 10 ML SYR IV PRN (13:37)
[2018-11-17 08:46] VITALS: BP 128/85; TEMP 97.7; O2SAT 98
[2018-11-17 09:31] LABS: ALBUMIN 4.1 GM/DL (3.5-5.2); ALKALINE PHOSPHATASE 87 U/L (44-147); BLOOD UREA NITROGEN 16 MG/DL (6-20); CARBON DIOXIDE LEVEL 26 MEQ/L (23-31); CHLORIDE LEVEL 105 MMOL/L (98-107); CREATININE FOR GFR 1.14 MG/DL (0.60-1.10); GLOMERULAR FILTRATION RATE 52.3 (>51); GLUCOSE, FASTING 103 MG/DL (70-105); SODIUM LEVEL 139 MMOL/L (135-145)
[2018-11-17] MEDS: FOSAPREPITANT PERIPHERAL LINE 30 MIN INFUSION (PREMIX) IV ONE (09:38)
[2018-11-17] MEDS: PALONOSETRON 250 MCG IV IV ONE (09:38)
[2018-11-17] MEDS: dexameTHASONE 10 MG IV IV ONE (09:39)
[2018-11-24 08:29] VITALS: BP 119/72; TEMP 97; O2SAT 98
[2018-11-24] MEDS: PALONOSETRON 250 MCG IV IV ONE (08:45)
[2018-11-24] MEDS: dexameTHASONE 10 MG IV IV ONE (08:45)
[2018-11-24] MEDS: FOSAPREPITANT PERIPHERAL LINE 30 MIN INFUSION (PREMIX) IV ONE (09:04)
[2018-12-08 08:19] VITALS: BP 129/83; TEMP 97.9; O2SAT 98
[2018-12-08] MEDS: PALONOSETRON 250 MCG IV IV ONE (08:51)
[2018-12-08] MEDS: dexameTHASONE 10 MG IV IV ONE (08:51)
[2018-12-08] MEDS: FOSAPREPITANT PERIPHERAL LINE 30 MIN INFUSION (PREMIX) IV ONE (08:51)
[2018-12-08] MEDS: SODIUM CHLORIDE 0.9% INJ 10 ML SYR IV PRN (13:35)
[2018-12-15 08:27] VITALS: BP 136/86; TEMP 97.7; O2SAT 100
[2018-12-15] MEDS: dexameTHASONE 10 MG IV IV ONE (09:18)
[2018-12-15] MEDS: PALONOSETRON 250 MCG IV IV ONE (09:19)
[2018-12-15] MEDS: FOSAPREPITANT PERIPHERAL LINE 30 MIN INFUSION (PREMIX) IV ONE (11:50)
[2018-12-16] MEDS: FILGRASTIM 480 MCG/0.8 ML SYRINGE **SC ADMINISTRATION ONLY SC ONE (15:13)
[2018-12-17] MEDS: FILGRASTIM 480 MCG/0.8 ML SYRINGE **SC ADMINISTRATION ONLY SC ONE (11:00)
[2018-12-29 08:10] VITALS: BP 113/77; TEMP 97.8; O2SAT 98
[2018-12-29] MEDS: PALONOSETRON 250 MCG IV IV ONE (08:37)
[2018-12-29] MEDS: dexameTHASONE 10 MG IV IV ONE (08:37)
[2018-12-29] MEDS: FOSAPREPITANT PERIPHERAL LINE 30 MIN INFUSION (PREMIX) IV ONE (08:37)
[2018-12-29] MEDS: SODIUM CHLORIDE 0.9% INJ 10 ML SYR IV PRN (08:38)
[2018-12-30] MEDS: FILGRASTIM 480 MCG/0.8 ML SYRINGE **SC ADMINISTRATION ONLY SC ONE (10:00)
[2018-12-31] MEDS: FILGRASTIM 480 MCG/0.8 ML SYRINGE **SC ADMINISTRATION ONLY SC ONE (10:00)
[2019-01-02] MEDS: FILGRASTIM 300 MCG/0.5 ML SYRINGE **SC ADMINISTRATION ONLY SC ONE (15:58)
[2019-01-05 08:36] VITALS: BP 133/80; TEMP 97.9; O2SAT 97
[2019-01-05 09:08] LABS: BASO % 0.9 % (0.0-1.0); EOS # 0.1 10^3/uL (0.0-0.5); EOS % 1.5 % (0.0-3.0); HEMATOCRIT 36.4 % (36.0-47.0); HEMOGLOBIN 11.9 g/dl (12.0-15.5); LYMPH # 1.1 10^3/uL (1.5-5.0); LYMPH % 32.5 % (24.0-44.0); MEAN CORPUSCULAR HEMOGLOBIN 33.2 pg (27.0-33.0); MEAN CORPUSCULAR HGB CONC 32.7 g/dl (32.0-36.5); MEAN CORPUSCULAR VOLUME 101.7 fl (80.0-96.0); MONO # 0.6 10^3/uL (0.0-0.8); MONO % 18.9 % (0.0-5.0); NEUTROPHILS # 1.5 10^3/uL (1.5-8.5); NEUTROPHILS % 45.9 % (36.0-66.0); PLATELET COUNT, AUTOMATED 312 10^3/uL (150-450); RED BLOOD COUNT 3.58 10^6/uL (4.00-5.40); WHITE BLOOD COUNT 3.2 10^3/uL (4.0-10.0)
[2019-01-05] MEDS: FOSAPREPITANT PERIPHERAL LINE 30 MIN INFUSION (PREMIX) IV ONE (09:28)
[2019-01-05] MEDS: PALONOSETRON 250 MCG IV IV ONE (09:28)
[2019-01-05] MEDS: dexameTHASONE 10 MG IV IV ONE (09:28)
[2019-01-05] MEDS: SODIUM CHLORIDE 0.9% INJ 10 ML SYR IV PRN (15:08)
[2019-01-06] MEDS: FILGRASTIM 480 MCG/0.8 ML SYRINGE **SC ADMINISTRATION ONLY SC ONE (09:00)
[2019-01-07] MEDS: FILGRASTIM 480 MCG/0.8 ML SYRINGE **SC ADMINISTRATION ONLY SC ONE (09:00)
[2019-01-12 08:24] VITALS: BP 128/79; TEMP 97.2; O2SAT 99
[2019-01-12] MEDS: FOSAPREPITANT PERIPHERAL LINE 30 MIN INFUSION (PREMIX) IV ONE (11:42)
[2019-01-12] MEDS: dexameTHASONE 10 MG IV IV ONE (11:42)
[2019-01-12] MEDS: PALONOSETRON 250 MCG IV IV ONE (11:42)
[2019-01-12] MEDS: SODIUM CHLORIDE 0.9% INJ 10 ML SYR IV PRN (14:29)
[2019-01-13] MEDS: FILGRASTIM 480 MCG/0.8 ML SYRINGE **SC ADMINISTRATION ONLY SC ONE (09:00)
[2019-01-14] MEDS: FILGRASTIM 480 MCG/0.8 ML SYRINGE **SC ADMINISTRATION ONLY SC ONE (09:00)
[2019-01-26 08:00] VITALS: BP 121/73; TEMP 97.4; O2SAT 98
[2019-01-26] MEDS: FOSAPREPITANT PERIPHERAL LINE 30 MIN INFUSION (PREMIX) IV ONE (09:54)
[2019-01-26] MEDS: dexameTHASONE 10 MG IV IV ONE (10:23)
[2019-01-26] MEDS: PALONOSETRON 250 MCG IV IV ONE (10:23)
[2019-01-26] MEDS: SODIUM CHLORIDE 0.9% INJ 10 ML SYR IV PRN (12:53)
[2019-02-02] MEDS: FILGRASTIM 480 MCG/0.8 ML SYRINGE **SC ADMINISTRATION ONLY SC ONE ×3 (09:46)
[2019-02-02] MEDS: FOSAPREPITANT PERIPHERAL LINE 30 MIN INFUSION (PREMIX) IV ONE (10:01)
[2019-02-02] MEDS: dexameTHASONE 10 MG IV IV ONE (10:01)
[2019-02-02] MEDS: PALONOSETRON 250 MCG IV IV ONE (10:01)
[2019-02-02 10:03] VITALS: BP 120/68; TEMP 98.1; O2SAT 100
[2019-02-02] MEDS: SODIUM CHLORIDE 0.9% INJ 10 ML SYR IV PRN (13:15)
[2019-02-03] MEDS: FILGRASTIM 480 MCG/0.8 ML SYRINGE **SC ADMINISTRATION ONLY SC ONE (16:13)
[2019-02-04] MEDS: FILGRASTIM 480 MCG/0.8 ML SYRINGE **SC ADMINISTRATION ONLY SC ONE (08:20)
[2019-02-16 08:47] VITALS: BP 139/88; TEMP 96.2; O2SAT 99
[2019-02-16] MEDS: FOSAPREPITANT PERIPHERAL LINE 30 MIN INFUSION (PREMIX) IV ONE (09:30)
[2019-02-16] MEDS: dexameTHASONE 10 MG IV IV ONE (09:30)
[2019-02-16] MEDS: PALONOSETRON 250 MCG IV IV ONE (09:30)
[2019-02-23 08:22] VITALS: BP 129/81; TEMP 97.5; O2SAT 99
[2019-02-23] MEDS: PALONOSETRON 250 MCG IV IV ONE (08:26)
[2019-02-23] MEDS: FOSAPREPITANT PERIPHERAL LINE 30 MIN INFUSION (PREMIX) IV ONE (08:26)
[2019-02-23] MEDS: dexameTHASONE 10 MG IV IV ONE (08:26)
[2019-02-23] MEDS: SODIUM CHLORIDE 0.9% INJ 10 ML SYR IV PRN (08:27)
[2019-02-24] MEDS: FILGRASTIM 480 MCG/0.8 ML SYRINGE **SC ADMINISTRATION ONLY SC ONE (10:00)
[2019-02-26] MEDS: FILGRASTIM 480 MCG/0.8 ML SYRINGE **SC ADMINISTRATION ONLY SC ONE (09:00)
[2019-03-02 08:03] VITALS: BP 132/87; TEMP 97.5
[2019-03-02] MEDS: FOSAPREPITANT PERIPHERAL LINE 30 MIN INFUSION (PREMIX) IV ONE (10:34)
[2019-03-02] MEDS: PALONOSETRON 250 MCG IV IV ONE (10:34)
[2019-03-02] MEDS: dexameTHASONE 10 MG IV IV ONE (10:35)
[2019-03-02] MEDS: SODIUM CHLORIDE 0.9% INJ 10 ML SYR IV PRN (14:08)
[2019-03-03 08:18] VITALS: BP 138/81; TEMP 97; O2SAT 99
[2019-03-03] MEDS: FILGRASTIM 480 MCG/0.8 ML SYRINGE **SC ADMINISTRATION ONLY SC ONE (08:20)
[2019-03-05] MEDS: FILGRASTIM 480 MCG/0.8 ML SYRINGE **SC ADMINISTRATION ONLY SC ONE (08:25)
[2019-03-09] MEDS: dexameTHASONE 10 MG IV IV ONE (08:00)
[2019-03-09] MEDS: PALONOSETRON 250 MCG IV IV ONE (08:00)
[2019-03-09 08:15] VITALS: BP 118/75; TEMP 98; O2SAT 98
[2019-03-09] MEDS: FOSAPREPITANT PERIPHERAL LINE 30 MIN INFUSION (PREMIX) IV ONE (11:25)
[2019-03-09] MEDS: SODIUM CHLORIDE 0.9% INJ 10 ML SYR IV PRN (14:04)
[2019-03-10] MEDS: FILGRASTIM 480 MCG/0.8 ML SYRINGE **SC ADMINISTRATION ONLY SC ONE (09:22)
[2019-03-11] MEDS: FILGRASTIM 480 MCG/0.8 ML SYRINGE **SC ADMINISTRATION ONLY SC ONE (08:22)
[2019-03-23 08:05] VITALS: BP 132/86; TEMP 97.5; O2SAT 98
[2019-03-23 09:36] LABS: BASO % 0.5 % (0.0-1.0); EOS # 0.1 10^3/uL (0.0-0.5); EOS % 1.9 % (0.0-3.0); HEMATOCRIT 36.7 % (36.0-47.0); HEMOGLOBIN 11.6 g/dl (12.0-15.5); LYMPH # 1.1 10^3/uL (1.5-5.0); LYMPH % 31.2 % (24.0-44.0); MEAN CORPUSCULAR HEMOGLOBIN 32.6 pg (27.0-33.0); MEAN CORPUSCULAR HGB CONC 31.6 g/dl (32.0-36.5); MEAN CORPUSCULAR VOLUME 103.1 fl (80.0-96.0); MONO # 0.5 10^3/uL (0.0-0.8); MONO % 14.5 % (0.0-5.0); NEUTROPHILS # 1.9 10^3/uL (1.5-8.5); NEUTROPHILS % 51.6 % (36.0-66.0); PLATELET COUNT, AUTOMATED 203 10^3/uL (150-450); RED BLOOD COUNT 3.56 10^6/uL (4.00-5.40); WHITE BLOOD COUNT 3.7 10^3/uL (4.0-10.0)
[2019-03-23 09:58] LABS: ALBUMIN 3.9 GM/DL (3.2-5.2); ALKALINE PHOSPHATASE 131 U/L (45-117); ALT/SGPT 19 U/L (12-78); AST/SGOT 12 U/L (7-37); BILIRUBIN,TOTAL 0.2 MG/DL (0.2-1.0); BLOOD UREA NITROGEN 14 MG/DL (7-18); CALCIUM LEVEL 8.9 MG/DL (8.5-10.1); CARBON DIOXIDE LEVEL 29 MEQ/L (21-32); CHLORIDE LEVEL 106 MEQ/L (98-107); CREATININE FOR GFR 0.99 MG/DL (0.55-1.30); GLOMERULAR FILTRATION RATE > 60.0 (>51); GLUCOSE, FASTING 86 MG/DL (70-100); SODIUM LEVEL 140 MEQ/L (136-145); TOTAL PROTEIN 7.9 GM/DL (6.4-8.2)
[2019-03-24 09:26] LABS: CARCINOEMBRYONIC ANTIGEN 7.6 NG/ML (<2.5)
[2019-03-24 09:27] LABS: FOLATE 11.3 NG/ML; VITAMIN B12 LEVEL > 2000 PG/ML
[2019-03-24 09:55] LABS: CA19-9 TUMOR MARKER,CARBOHYDRA 13.8 U/ML (<35.0)
[2019-04-13 08:26] VITALS: BP 122/75; O2SAT 99
[2019-04-13] MEDS: SODIUM CHLORIDE 0.9% INJ 10 ML SYR IV PRN (09:42)
[2019-04-13 10:03] LABS: BASO # 0.1 10^3/uL (0.0-0.2); BASO % 0.8 % (0.0-1.0); EOS # 0.2 10^3/uL (0.0-0.5); EOS % 3.3 % (0.0-3.0); HEMATOCRIT 35.8 % (36.0-47.0); HEMOGLOBIN 11.4 g/dl (12.0-15.5); LYMPH # 1.4 10^3/uL (1.5-5.0); LYMPH % 20.5 % (24.0-44.0); MEAN CORPUSCULAR HGB CONC 31.8 g/dl (32.0-36.5); MEAN CORPUSCULAR VOLUME 100.6 fl (80.0-96.0); MONO # 0.5 10^3/uL (0.0-0.8); MONO % 8.1 % (0.0-5.0); NEUTROPHILS # 4.4 10^3/uL (1.5-8.5); PLATELET COUNT, AUTOMATED 196 10^3/uL (150-450); RED BLOOD COUNT 3.56 10^6/uL (4.00-5.40); WHITE BLOOD COUNT 6.6 10^3/uL (4.0-10.0)
[2019-04-13 10:25] LABS: ALBUMIN 3.7 GM/DL (3.2-5.2); BILIRUBIN,TOTAL 0.6 MG/DL (0.2-1.0); CREATININE FOR GFR 1.02 MG/DL (0.55-1.30); GLOMERULAR FILTRATION RATE 59.5 (>51); POTASSIUM SERUM 3.9 MEQ/L (3.5-5.1); TOTAL PROTEIN 7.8 GM/DL (6.4-8.2)
[2019-04-13 10:27] LABS: PERCENT SATURATION 9.3 % (13.2-45.0)
[2019-04-23 08:33] VITALS: BP 128/72; O2SAT 100
[2019-04-23 08:59] LABS: BASO # 0.1 10^3/uL (0.0-0.2); BASO % 0.7 % (0.0-1.0); EOS # 0.3 10^3/uL (0.0-0.5); HEMOGLOBIN 11.4 g/dl (12.0-15.5); LYMPH # 1.3 10^3/uL (1.5-5.0); LYMPH % 17.6 % (24.0-44.0); MEAN CORPUSCULAR HGB CONC 32.6 g/dl (32.0-36.5); MEAN CORPUSCULAR VOLUME 98.3 fl (80.0-96.0); MONO # 0.5 10^3/uL (0.0-0.8); MONO % 7.3 % (0.0-5.0); NEUTROPHILS # 5.1 10^3/uL (1.5-8.5); NEUTROPHILS % 70.1 % (36.0-66.0); PLATELET COUNT, AUTOMATED 231 10^3/uL (150-450); RED BLOOD COUNT 3.56 10^6/uL (4.00-5.40); WHITE BLOOD COUNT 7.3 10^3/uL (4.0-10.0)
[2019-04-23 09:18] LABS: ALBUMIN 3.5 GM/DL (3.2-5.2); ALKALINE PHOSPHATASE 125 U/L (45-117); ALT/SGPT 16 U/L (12-78); AST/SGOT 7 U/L (7-37); BILIRUBIN,TOTAL 0.3 MG/DL (0.2-1.0); BLOOD UREA NITROGEN 15 MG/DL (7-18); CALCIUM LEVEL 8.8 MG/DL (8.5-10.1); CARBON DIOXIDE LEVEL 29 MEQ/L (21-32); CHLORIDE LEVEL 106 MEQ/L (98-107); CREATININE FOR GFR 0.97 MG/DL (0.55-1.30); GLOMERULAR FILTRATION RATE > 60.0 (>51); GLUCOSE, FASTING 103 MG/DL (70-100); POTASSIUM SERUM 4.1 MEQ/L (3.5-5.1); SODIUM LEVEL 138 MEQ/L (136-145); TOTAL PROTEIN 7.9 GM/DL (6.4-8.2)
[2019-04-23] MEDS: FOSAPREPITANT PERIPHERAL LINE 30 MIN INFUSION (PREMIX) IV ONE (09:39)
[2019-04-23] MEDS: dexameTHASONE 10 MG IV IV ONE (09:39)
[2019-04-23] MEDS: PALONOSETRON 250 MCG IV IV ONE (09:39)
[2019-04-23] MEDS: MAGNESIUM SULFATE IV ONE (13:56)
[2019-04-23] MEDS: NS B BRAUN IV ONE (13:56)
[2019-04-23] MEDS: POTASSIUM CHLORIDE IV ONE (13:56)
[2019-04-23] MEDS: SODIUM CHLORIDE 0.9% INJ 10 ML SYR IV PRN (16:06)
[2019-04-24] MEDS: FILGRASTIM 480 MCG/0.8 ML SYRINGE **SC ADMINISTRATION ONLY SC ONE (08:19)
[2019-04-27] MEDS: FILGRASTIM 480 MCG/0.8 ML SYRINGE **SC ADMINISTRATION ONLY SC ONE (08:37)
[2019-04-29 08:40] VITALS: BP 106/70; O2SAT 99
[2019-04-29] MEDS: FOSAPREPITANT PERIPHERAL LINE 30 MIN INFUSION IV ONE (09:01)
[2019-04-29] MEDS: PALONOSETRON 250 MCG IV IV ONE (09:01)
[2019-04-29] MEDS: dexameTHASONE 10 MG IV IV ONE (09:02)
[2019-04-29] MEDS: POTASSIUM CHLORIDE IV ONE (11:56)
[2019-04-29] MEDS: MAGNESIUM SULFATE IV ONE (11:56)
[2019-04-29] MEDS: NS B BRAUN IV ONE (11:56)
[2019-04-30] MEDS: FILGRASTIM 480 MCG/0.8 ML SYRINGE **SC ADMINISTRATION ONLY SC ONE (09:00)
[2019-05-01] MEDS: FILGRASTIM 480 MCG/0.8 ML SYRINGE **SC ADMINISTRATION ONLY SC ONE (09:00)
[2019-05-13 08:07] VITALS: BP 116/79; O2SAT 94
[2019-05-13] MEDS: PALONOSETRON 250 MCG IV IV ONE (09:55)
[2019-05-13] MEDS: FOSAPREPITANT PERIPHERAL LINE 30 MIN INFUSION (PREMIX) IV ONE (09:55)
[2019-05-13] MEDS: dexameTHASONE 10 MG IV IV ONE (09:55)
[2019-05-13] MEDS: NS B BRAUN IV ONE (09:56)
[2019-05-13] MEDS: POTASSIUM CHLORIDE IV ONE (09:56)
[2019-05-13] MEDS: MAGNESIUM SULFATE IV ONE (09:56)
[2019-05-13] MEDS: FILGRASTIM 480 MCG/0.8 ML SYRINGE **SC ADMINISTRATION ONLY SC ONE (11:04)
[2019-05-20 08:25] VITALS: BP 106/73; O2SAT 98
[2019-05-20 08:31] LABS: BASO % 0.5 % (0.0-1.0); EOS # 0.2 10^3/uL (0.0-0.5); EOS % 2.8 % (0.0-3.0); HEMATOCRIT 29.7 % (36.0-47.0); HEMOGLOBIN 9.3 g/dl (12.0-15.5); LYMPH % 16.6 % (24.0-44.0); MEAN CORPUSCULAR HEMOGLOBIN 30.5 pg (27.0-33.0); MEAN CORPUSCULAR HGB CONC 31.3 g/dl (32.0-36.5); MEAN CORPUSCULAR VOLUME 97.4 fl (80.0-96.0); MONO # 0.5 10^3/uL (0.0-0.8); MONO % 8.9 % (0.0-5.0); NEUTROPHILS # 4.2 10^3/uL (1.5-8.5); NEUTROPHILS % 70.9 % (36.0-66.0); PLATELET COUNT, AUTOMATED 287 10^3/uL (150-450); RED BLOOD COUNT 3.05 10^6/uL (4.00-5.40)
[2019-05-20 09:03] LABS: BILIRUBIN,TOTAL 0.2 MG/DL (0.2-1.0); CALCIUM LEVEL 8.7 MG/DL (8.5-10.1); CREATININE FOR GFR 1.1 MG/DL (0.55-1.30); GLOMERULAR FILTRATION RATE 54.3 (>51); POTASSIUM SERUM 3.7 MEQ/L (3.5-5.1); TOTAL PROTEIN 7.2 GM/DL (6.4-8.2)
[2019-05-20] MEDS: FOSAPREPITANT PERIPHERAL LINE 30 MIN INFUSION (PREMIX) IV ONE (10:03)
[2019-05-20] MEDS: PALONOSETRON 250 MCG IV IV ONE (10:03)
[2019-05-20] MEDS: dexameTHASONE 10 MG IV IV ONE (10:04)
[2019-05-21] MEDS: FILGRASTIM 480 MCG/0.8 ML SYRINGE **SC ADMINISTRATION ONLY SC SCH (08:27)
[2019-05-21] MEDS: FILGRASTIM 480 MCG/0.8 ML SYRINGE **SC ADMINISTRATION ONLY SC ONE (08:28)
[2019-05-27 08:16] VITALS: BP 106/68; O2SAT 98
[2019-05-27 08:18] LABS: BASO % 0.6 % (0.0-1.0); EOS % 0.6 % (0.0-3.0); HEMATOCRIT 30.2 % (36.0-47.0); HEMOGLOBIN 9.6 g/dl (12.0-15.5); LYMPH # 1.4 10^3/uL (1.5-5.0); LYMPH % 21.9 % (24.0-44.0); MEAN CORPUSCULAR HEMOGLOBIN 30.6 pg (27.0-33.0); MEAN CORPUSCULAR HGB CONC 31.8 g/dl (32.0-36.5); MEAN CORPUSCULAR VOLUME 96.2 fl (80.0-96.0); MONO # 0.6 10^3/uL (0.0-0.8); MONO % 10.3 % (0.0-5.0); NEUTROPHILS # 3.9 10^3/uL (1.5-8.5); NEUTROPHILS % 62.9 % (36.0-66.0); PLATELET COUNT, AUTOMATED 152 10^3/uL (150-450); RED BLOOD COUNT 3.14 10^6/uL (4.00-5.40); WHITE BLOOD COUNT 6.2 10^3/uL (4.0-10.0)
[2019-05-27 08:50] LABS: ALBUMIN 3.1 GM/DL (3.2-5.2); BILIRUBIN,TOTAL 0.3 MG/DL (0.2-1.0); CALCIUM LEVEL 8.7 MG/DL (8.5-10.1); CREATININE FOR GFR 1.04 MG/DL (0.55-1.30); GLOMERULAR FILTRATION RATE 57.9 (>51); POTASSIUM SERUM 3.9 MEQ/L (3.5-5.1); TOTAL PROTEIN 7.6 GM/DL (6.4-8.2)
[2019-05-27] MEDS: FOSAPREPITANT PERIPHERAL LINE 30 MIN INFUSION IV ONE (09:17)
[2019-05-27] MEDS: dexameTHASONE 10 MG IV IV ONE (09:17)
[2019-05-27] MEDS: PALONOSETRON 250 MCG IV IV ONE (09:17)
[2019-05-27] MEDS: SODIUM CHLORIDE 0.9% INJ 10 ML SYR IV PRN (15:45)
[2019-05-28] MEDS: FILGRASTIM 480 MCG/0.8 ML SYRINGE **SC ADMINISTRATION ONLY SC SCH (08:47)
[2019-06-10] MEDS: SODIUM CHLORIDE 0.9% INJ 10 ML SYR IV PRN (08:30)
[2019-06-10 08:46] LABS: BASO % 0.6 % (0.0-1.0); EOS # 0.2 10^3/uL (0.0-0.5); EOS % 3.8 % (0.0-3.0); HEMATOCRIT 28.6 % (36.0-47.0); LYMPH % 18.8 % (24.0-44.0); MEAN CORPUSCULAR HEMOGLOBIN 30.4 pg (27.0-33.0); MEAN CORPUSCULAR HGB CONC 31.5 g/dl (32.0-36.5); MEAN CORPUSCULAR VOLUME 96.6 fl (80.0-96.0); MONO # 0.8 10^3/uL (0.0-0.8); MONO % 15.4 % (0.0-5.0); NEUTROPHILS # 3.2 10^3/uL (1.5-8.5); PLATELET COUNT, AUTOMATED 230 10^3/uL (150-450); RED BLOOD COUNT 2.96 10^6/uL (4.00-5.40); WHITE BLOOD COUNT 5.2 10^3/uL (4.0-10.0)
[2019-06-10 09:05] LABS: ALBUMIN 3.1 GM/DL (3.2-5.2); ALKALINE PHOSPHATASE 129 U/L (45-117); ALT/SGPT 20 U/L (12-78); AST/SGOT 14 U/L (7-37); BILIRUBIN,TOTAL 0.3 MG/DL (0.2-1.0); BLOOD UREA NITROGEN 13 MG/DL (7-18); CALCIUM LEVEL 8.8 MG/DL (8.5-10.1); CARBON DIOXIDE LEVEL 26 MEQ/L (21-32); CHLORIDE LEVEL 105 MEQ/L (98-107); GLOMERULAR FILTRATION RATE > 60.0 (>51); GLUCOSE, FASTING 118 MG/DL (70-100); POTASSIUM SERUM 3.9 MEQ/L (3.5-5.1); SODIUM LEVEL 136 MEQ/L (136-145); TOTAL PROTEIN 7.8 GM/DL (6.4-8.2)
[2019-06-10 09:08] VITALS: BP 146/83; O2SAT 98
[2019-09-15] MEDS: SODIUM CHLORIDE 0.9% INJ 10 ML SYR IV PRN (09:00)
[2019-12-30] MEDS: SODIUM CHLORIDE 0.9% INJ 10 ML SYR IV PRN (10:26)
[2019-12-30 10:34] LABS: BASO % 0.4 % (0.0-1.0); EOS # 0.1 10^3/uL (0.0-0.5); EOS % 1.6 % (0.0-3.0); HEMATOCRIT 37.2 % (36.0-47.0); HEMOGLOBIN 12.1 g/dl (12.0-15.5); LYMPH # 0.8 10^3/uL (1.5-5.0); LYMPH % 18.5 % (24.0-44.0); MEAN CORPUSCULAR HEMOGLOBIN 31.9 pg (27.0-33.0); MEAN CORPUSCULAR HGB CONC 32.5 g/dl (32.0-36.5); MEAN CORPUSCULAR VOLUME 98.2 fl (80.0-96.0); MONO # 0.4 10^3/uL (0.0-0.8); MONO % 9.6 % (0.0-5.0); NEUTROPHILS # 3.1 10^3/uL (1.5-8.5); NEUTROPHILS % 69.7 % (36.0-66.0); PLATELET COUNT, AUTOMATED 184 10^3/uL (150-450); RED BLOOD COUNT 3.79 10^6/uL (4.00-5.40); WHITE BLOOD COUNT 4.5 10^3/uL (4.0-10.0)
[2019-12-30 10:38] VITALS: BP 126/84; O2SAT 98
[2019-12-30 11:11] LABS: ALBUMIN 3.6 GM/DL (3.2-5.2); ALKALINE PHOSPHATASE 165 U/L (45-117); ALT/SGPT 27 U/L (12-78); AST/SGOT 21 U/L (7-37); BILIRUBIN,TOTAL 0.3 MG/DL (0.2-1.0); BLOOD UREA NITROGEN 12 MG/DL (7-18); CALCIUM LEVEL 8.9 MG/DL (8.5-10.1); CARBON DIOXIDE LEVEL 25 MEQ/L (21-32); CHLORIDE LEVEL 107 MEQ/L (98-107); CREATININE FOR GFR 0.86 MG/DL (0.55-1.30); GLOMERULAR FILTRATION RATE > 60.0 (>51); GLUCOSE, FASTING 102 MG/DL (70-100); POTASSIUM SERUM 3.8 MEQ/L (3.5-5.1); SODIUM LEVEL 138 MEQ/L (136-145); TOTAL PROTEIN 7.8 GM/DL (6.4-8.2)
[2019-12-30 11:47] LABS: CA19-9 TUMOR MARKER,CARBOHYDRA 8.5 U/ML (<35.0); CARCINOEMBRYONIC ANTIGEN 1.8 NG/ML (<2.5)
[2020-01-09 08:32] LABS: ALBUMIN 3.6 GM/DL (3.2-5.2); ALKALINE PHOSPHATASE 221 U/L (45-117); ALT/SGPT 24 U/L (12-78); AST/SGOT 24 U/L (7-37); BILIRUBIN,TOTAL 0.6 MG/DL (0.2-1.0); BLOOD UREA NITROGEN 13 MG/DL (7-18); CA19-9 TUMOR MARKER,CARBOHYDRA 10.3 U/ML (<35.0); CALCIUM LEVEL 9.1 MG/DL (8.5-10.1); CARBON DIOXIDE LEVEL 26 MEQ/L (21-32); CARCINOEMBRYONIC ANTIGEN 24.9 NG/ML (<2.5); CHLORIDE LEVEL 106 MEQ/L (98-107); CREATININE FOR GFR 0.94 MG/DL (0.55-1.30); GLOMERULAR FILTRATION RATE > 60.0 (>51); GLUCOSE, FASTING 113 MG/DL (70-100); POTASSIUM SERUM 3.8 MEQ/L (3.5-5.1); SODIUM LEVEL 139 MEQ/L (136-145); TOTAL PROTEIN 7.5 GM/DL (6.4-8.2)
[2020-01-14 08:28] VITALS: BP 117/79; O2SAT 99
[2020-04-22 08:38] VITALS: BP 114/74; O2SAT 96
[2020-04-22] MEDS: SODIUM CHLORIDE 0.9% INJ 10 ML SYR IV PRN (08:38)
[2020-04-22 08:59] LABS: BASO % 0.4 % (0.0-1.0); EOS # 0.1 10^3/uL (0.0-0.5); EOS % 1.3 % (0.0-3.0); HEMATOCRIT 40.1 % (36.0-47.0); HEMOGLOBIN 13.3 g/dl (12.0-15.5); LYMPH # 1.1 10^3/uL (1.5-5.0); LYMPH % 24.4 % (24.0-44.0); MEAN CORPUSCULAR HEMOGLOBIN 32.4 pg (27.0-33.0); MEAN CORPUSCULAR HGB CONC 33.2 g/dl (32.0-36.5); MEAN CORPUSCULAR VOLUME 97.8 fl (80.0-96.0); MONO # 0.4 10^3/uL (0.0-0.8); MONO % 8.2 % (2.0-8.0); NEUTROPHILS % 65.5 % (36.0-66.0); PLATELET COUNT, AUTOMATED 165 10^3/uL (150-450); WHITE BLOOD COUNT 4.6 10^3/uL (4.0-10.0)
[2020-04-22 09:32] LABS: ALBUMIN 3.6 GM/DL (3.2-5.2); BILIRUBIN,TOTAL 0.2 MG/DL (0.2-1.0); CALCIUM LEVEL 8.7 MG/DL (8.5-10.1); CREATININE FOR GFR 1.06 MG/DL (0.55-1.30); GLOMERULAR FILTRATION RATE 56.5 (>51); POTASSIUM SERUM 3.9 MEQ/L (3.5-5.1); TOTAL PROTEIN 7.7 GM/DL (6.4-8.2)
[2020-07-27] MEDS: SODIUM CHLORIDE 0.9% INJ 10 ML SYR IV PRN (14:14)
[2020-07-27 14:31] VITALS: BP 111/72; O2SAT 96
[2020-07-27 15:01] LABS: BASO % 0.4 % (0.0-1.0); EOS % 0.8 % (0.0-3.0); HEMATOCRIT 37.9 % (36.0-47.0); HEMOGLOBIN 12.3 g/dl (12.0-15.5); LYMPH # 1.3 10^3/uL (1.5-5.0); LYMPH % 26.4 % (24.0-44.0); MEAN CORPUSCULAR HEMOGLOBIN 32.1 pg (27.0-33.0); MEAN CORPUSCULAR HGB CONC 32.5 g/dl (32.0-36.5); MONO # 0.4 10^3/uL (0.0-0.8); MONO % 8.2 % (2.0-8.0); NEUTROPHILS # 3.1 10^3/uL (1.5-8.5); PLATELET COUNT, AUTOMATED 159 10^3/uL (150-450); RED BLOOD COUNT 3.83 10^6/uL (4.00-5.40); WHITE BLOOD COUNT 4.8 10^3/uL (4.0-10.0)
[2020-07-27 15:09] LABS: ALBUMIN 3.6 GM/DL (3.2-5.2); BILIRUBIN,TOTAL 0.3 MG/DL (0.2-1.0); CALCIUM LEVEL 9.8 MG/DL (8.5-10.1); CREATININE FOR GFR 1.11 MG/DL (0.55-1.30); GLOMERULAR FILTRATION RATE 53.6 (>51); POTASSIUM SERUM 3.8 MEQ/L (3.5-5.1); TOTAL PROTEIN 7.3 GM/DL (6.4-8.2)
[2020-07-27 15:45] LABS: CARCINOEMBRYONIC ANTIGEN 1.6 NG/ML (<2.5)
[2020-10-28] MEDS: SODIUM CHLORIDE 0.9% INJ 10 ML SYR IV PRN (07:55)
[2020-10-28 08:03] VITALS: BP 114/75; O2SAT 100
[2020-10-28 08:05] LABS: BASO % 0.6 % (0.0-1.0); EOS % 0.9 % (0.0-3.0); HEMATOCRIT 38.5 % (36.0-47.0); HEMOGLOBIN 12.8 g/dl (12.0-15.5); LYMPH # 0.8 10^3/uL (1.5-5.0); LYMPH % 24.2 % (24.0-44.0); MEAN CORPUSCULAR HEMOGLOBIN 32.9 pg (27.0-33.0); MEAN CORPUSCULAR HGB CONC 33.2 g/dl (32.0-36.5); MONO # 0.3 10^3/uL (0.0-0.8); MONO % 8.2 % (2.0-8.0); NEUTROPHILS # 2.2 10^3/uL (1.5-8.5); NEUTROPHILS % 65.8 % (36.0-66.0); PLATELET COUNT, AUTOMATED 121 10^3/uL (150-450); RED BLOOD COUNT 3.89 10^6/uL (4.00-5.40); WHITE BLOOD COUNT 3.3 10^3/uL (4.0-10.0)
[2020-10-28 08:26] LABS: ALBUMIN 3.3 GM/DL (3.2-5.2); ALKALINE PHOSPHATASE 105 U/L (45-117); ALT/SGPT 29 U/L (12-78); AST/SGOT 16 U/L (7-37); BILIRUBIN,TOTAL 0.5 MG/DL (0.2-1.0); BLOOD UREA NITROGEN 14 MG/DL (7-18); CALCIUM LEVEL 8.4 MG/DL (8.5-10.1); CARBON DIOXIDE LEVEL 26 MEQ/L (21-32); CHLORIDE LEVEL 108 MEQ/L (98-107); CREATININE FOR GFR 0.99 MG/DL (0.55-1.30); GLOMERULAR FILTRATION RATE > 60.0 (>51); GLUCOSE, FASTING 141 MG/DL (70-100); POTASSIUM SERUM 3.8 MEQ/L (3.5-5.1); SODIUM LEVEL 140 MEQ/L (136-145)
[2021-01-31] MEDS: SODIUM CHLORIDE 0.9% INJ 10 ML SYR IV PRN (08:00)
[2021-01-31 08:01] VITALS: BP 114/74; O2SAT 100
[2021-01-31 08:17] LABS: BASO % 0.9 % (0.0-1.0); EOS % 1.2 % (0.0-3.0); HEMATOCRIT 38.8 % (36.0-47.0); HEMOGLOBIN 12.7 g/dl (12.0-15.5); LYMPH # 0.8 10^3/uL (1.5-5.0); MEAN CORPUSCULAR HEMOGLOBIN 32.2 pg (27.0-33.0); MEAN CORPUSCULAR HGB CONC 32.7 g/dl (32.0-36.5); MEAN CORPUSCULAR VOLUME 98.5 fl (80.0-96.0); MONO # 0.4 10^3/uL (0.0-0.8); MONO % 13.6 % (2.0-8.0); NEUTROPHILS # 1.9 10^3/uL (1.5-8.5); NEUTROPHILS % 59.3 % (36.0-66.0); PLATELET COUNT, AUTOMATED 133 10^3/uL (150-450); RED BLOOD COUNT 3.94 10^6/uL (4.00-5.40); WHITE BLOOD COUNT 3.2 10^3/uL (4.0-10.0)
[2021-01-31 08:37] LABS: ALBUMIN 3.4 GM/DL (3.2-5.2); ALKALINE PHOSPHATASE 124 U/L (45-117); ALT/SGPT 35 U/L (12-78); AST/SGOT 19 U/L (7-37); BILIRUBIN,TOTAL 0.5 MG/DL (0.2-1.0); BLOOD UREA NITROGEN 18 MG/DL (7-18); CALCIUM LEVEL 8.6 MG/DL (8.5-10.1); CARBON DIOXIDE LEVEL 26 MEQ/L (21-32); CHLORIDE LEVEL 109 MEQ/L (98-107); CREATININE FOR GFR 0.93 MG/DL (0.55-1.30); GLOMERULAR FILTRATION RATE > 60.0 (>51); GLUCOSE, FASTING 97 MG/DL (70-100); POTASSIUM SERUM 3.7 MEQ/L (3.5-5.1); SODIUM LEVEL 141 MEQ/L (136-145); TOTAL PROTEIN 7.1 GM/DL (6.4-8.2)
[2021-03-08 14:58] VITALS: BP 136/88; O2SAT 97
[2021-04-26] MEDS: SODIUM CHLORIDE 0.9% INJ 10 ML SYR IV PRN (13:14)
[2021-05-30] MEDS: SODIUM CHLORIDE 0.9% INJ 10 ML SYR IV PRN (07:52)
[2021-05-30 07:57] VITALS: BP 133/79; O2SAT 99
[2021-05-30 08:05] LABS: BASO % 0.5 % (0.0-1.0); EOS % 0.9 % (0.0-3.0); HEMOGLOBIN 12.9 g/dl (12.0-15.5); LYMPH % 23.9 % (24.0-44.0); MEAN CORPUSCULAR HEMOGLOBIN 32.2 pg (27.0-33.0); MEAN CORPUSCULAR HGB CONC 33.1 g/dl (32.0-36.5); MEAN CORPUSCULAR VOLUME 97.3 fl (80.0-96.0); MONO # 0.3 10^3/uL (0.0-0.8); MONO % 7.6 % (2.0-8.0); NEUTROPHILS # 2.8 10^3/uL (1.5-8.5); NEUTROPHILS % 66.9 % (36.0-66.0); PLATELET COUNT, AUTOMATED 158 10^3/uL (150-450); RED BLOOD COUNT 4.01 10^6/uL (4.00-5.40); WHITE BLOOD COUNT 4.2 10^3/uL (4.0-10.0)
[2021-05-30 08:24] LABS: ALBUMIN 3.7 GM/DL (3.2-5.2); ALKALINE PHOSPHATASE 195 U/L (45-117); ALT/SGPT 56 U/L (12-78); AST/SGOT 37 U/L (7-37); BILIRUBIN,TOTAL 0.4 MG/DL (0.2-1.0); BLOOD UREA NITROGEN 19 MG/DL (7-18); CALCIUM LEVEL 8.7 MG/DL (8.8-10.2); CARBON DIOXIDE LEVEL 29 MEQ/L (21-32); CHLORIDE LEVEL 107 MEQ/L (98-107); CREATININE FOR GFR 0.93 MG/DL (0.55-1.30); GLOMERULAR FILTRATION RATE > 60.0 (>45); GLUCOSE, FASTING 128 MG/DL (70-100); SODIUM LEVEL 142 MEQ/L (136-145); TOTAL PROTEIN 7.1 GM/DL (6.4-8.2)
[2021-05-30 10:05] LABS: CA19-9 TUMOR MARKER,CARBOHYDRA 11.2 U/ML (<35.0); CARCINOEMBRYONIC ANTIGEN 1.2 NG/ML (<2.5)
[2021-08-25] MEDS: SODIUM CHLORIDE 0.9% INJ 10 ML SYR IV PRN (08:02)
[2021-08-25 08:16] LABS: BASO % 0.4 % (0.0-1.0); EOS % 0.8 % (0.0-3.0); HEMATOCRIT 38.3 % (36.0-47.0); HEMOGLOBIN 12.7 g/dl (12.0-15.5); LYMPH # 1.1 10^3/uL (1.5-5.0); LYMPH % 23.7 % (24.0-44.0); MEAN CORPUSCULAR HEMOGLOBIN 32.8 pg (27.0-33.0); MEAN CORPUSCULAR HGB CONC 33.2 g/dl (32.0-36.5); MONO # 0.4 10^3/uL (0.0-0.8); MONO % 8.3 % (2.0-8.0); NEUTROPHILS # 3.2 10^3/uL (1.5-8.5); NEUTROPHILS % 66.4 % (36.0-66.0); PLATELET COUNT, AUTOMATED 148 10^3/uL (150-450); RED BLOOD COUNT 3.87 10^6/uL (4.00-5.40); WHITE BLOOD COUNT 4.8 10^3/uL (4.0-10.0)
[2021-08-25 08:19] VITALS: BP 125/78; O2SAT 99
[2021-08-25 08:47] LABS: ALBUMIN 3.5 GM/DL (3.2-5.2); ALKALINE PHOSPHATASE 178 U/L (45-117); ALT/SGPT 40 U/L (12-78); AST/SGOT 20 U/L (7-37); BILIRUBIN,TOTAL 0.5 MG/DL (0.2-1.0); BLOOD UREA NITROGEN 19 MG/DL (7-18); CALCIUM LEVEL 9.1 MG/DL (8.8-10.2); CARBON DIOXIDE LEVEL 27 MEQ/L (21-32); CHLORIDE LEVEL 109 MEQ/L (98-107); CREATININE FOR GFR 0.97 MG/DL (0.55-1.30); GLOMERULAR FILTRATION RATE > 60.0 (>45); GLUCOSE, FASTING 132 MG/DL (70-100); POTASSIUM SERUM 3.7 MEQ/L (3.5-5.1); SODIUM LEVEL 141 MEQ/L (136-145); TOTAL PROTEIN 7.3 GM/DL (6.4-8.2)
[2021-08-25 09:21] LABS: INR 0.93; PROTHROMBIN TIME 12.9 SECONDS (12.7-14.5)
[2021-12-26 08:12] VITALS: BP 122/82; O2SAT 99
[2021-12-26 08:15] LABS: BASO % 0.5 % (0.0-1.0); EOS # 0.1 10^3/uL (0.0-0.5); EOS % 1.3 % (0.0-3.0); HEMATOCRIT 40.7 % (36.0-47.0); HEMOGLOBIN 13.4 g/dl (12.0-15.5); LYMPH # 1.3 10^3/uL (1.5-5.0); MEAN CORPUSCULAR HEMOGLOBIN 32.8 pg (27.0-33.0); MEAN CORPUSCULAR HGB CONC 32.9 g/dl (32.0-36.5); MEAN CORPUSCULAR VOLUME 99.5 fl (80.0-96.0); MONO # 0.4 10^3/uL (0.0-0.8); MONO % 7.2 % (2.0-8.0); NEUTROPHILS # 3.8 10^3/uL (1.5-8.5); NEUTROPHILS % 67.6 % (36.0-66.0); PLATELET COUNT, AUTOMATED 154 10^3/uL (150-450); RED BLOOD COUNT 4.09 10^6/uL (4.00-5.40); WHITE BLOOD COUNT 5.6 10^3/uL (4.0-10.0)
[2021-12-26 08:49] LABS: PERCENT SATURATION 31.1 % (13.2-45.0)
[2021-12-26 09:49] LABS: ALBUMIN 3.5 GM/DL (3.2-5.2); BILIRUBIN,TOTAL 0.5 MG/DL (0.2-1.0); CALCIUM LEVEL 9.1 MG/DL (8.8-10.2); CREATININE FOR GFR 1.06 MG/DL (0.55-1.30); GLOMERULAR FILTRATION RATE 56.3 (>45); POTASSIUM SERUM 3.5 MEQ/L (3.5-5.1); TOTAL PROTEIN 7.3 GM/DL (6.4-8.2)
[2021-12-26 09:53] LABS: CARCINOEMBRYONIC ANTIGEN 1.2 NG/ML (<2.5)
[2021-12-26 10:25] LABS: CA19-9 TUMOR MARKER,CARBOHYDRA 12.7 U/ML (<35.0)
[2022-04-27 10:05] VITALS: BP 114/79; O2SAT 99
[2022-04-27 10:19] LABS: BASO % 0.3 % (0.0-1.0); EOS % 0.7 % (0.0-3.0); HEMATOCRIT 41.1 % (36.0-47.0); HEMOGLOBIN 13.5 g/dl (12.0-15.5); LYMPH # 1.1 10^3/uL (1.5-5.0); LYMPH % 18.6 % (24.0-44.0); MEAN CORPUSCULAR HEMOGLOBIN 31.9 pg (27.0-33.0); MEAN CORPUSCULAR HGB CONC 32.8 g/dl (32.0-36.5); MEAN CORPUSCULAR VOLUME 97.2 fl (80.0-96.0); MONO # 0.4 10^3/uL (0.0-0.8); MONO % 7.3 % (2.0-8.0); NEUTROPHILS # 4.4 10^3/uL (1.5-8.5); NEUTROPHILS % 72.8 % (36.0-66.0); PLATELET COUNT, AUTOMATED 181 10^3/uL (150-450); RED BLOOD COUNT 4.23 10^6/uL (4.00-5.40)
[2022-04-27 10:24] LABS: ALBUMIN 3.9 G/DL (3.2-5.2); ALKALINE PHOSPHATASE 193 U/L (46-116); ALT/SGPT 30 U/L (7.0-40); AST/SGOT 24 U/L (<34); BILIRUBIN,TOTAL 0.5 MG/DL (0.3-1.2); BLOOD UREA NITROGEN 15 MG/DL (9-23); CALCIUM LEVEL 9.2 MG/DL (8.3-10.6); CARBON DIOXIDE LEVEL 31 MMOL/L (20-31); CHLORIDE LEVEL 103 MMOL/L (98-107); CREATININE FOR GFR 0.84 MG/DL (0.55-1.30); GLOMERULAR FILTRATION RATE > 60.0 (>45); GLUCOSE, FASTING 119 MG/DL (74-106); SODIUM LEVEL 139 MMOL/L (136-145); TOTAL PROTEIN 7.7 G/DL (5.7-8.2)
[2022-10-26 08:22] LABS: BASO % 0.8 % (0.0-1.0); EOS # 0.1 10^3/uL (0.0-0.5); EOS % 1.3 % (0.0-3.0); HEMATOCRIT 41.2 % (36.0-47.0); HEMOGLOBIN 13.6 g/dl (12.0-15.5); LYMPH # 0.9 10^3/uL (1.5-5.0); LYMPH % 22.8 % (24.0-44.0); MEAN CORPUSCULAR HEMOGLOBIN 32.4 pg (27.0-33.0); MEAN CORPUSCULAR VOLUME 98.1 fl (80.0-96.0); MONO # 0.3 10^3/uL (0.0-0.8); MONO % 8.1 % (2.0-8.0); NEUTROPHILS # 2.7 10^3/uL (1.5-8.5); PLATELET COUNT, AUTOMATED 153 10^3/uL (150-450)
[2022-10-26 08:35] VITALS: BP 129/77; O2SAT 100
[2022-10-26 08:50] LABS: ALBUMIN 3.7 G/DL (3.2-5.2); ALKALINE PHOSPHATASE 159 U/L (46-116); ALT/SGPT 40 U/L (7.0-40); AST/SGOT 17 U/L (<34); BILIRUBIN,TOTAL 0.6 MG/DL (0.3-1.2); BLOOD UREA NITROGEN 19 MG/DL (9-23); CALCIUM LEVEL 9.3 MG/DL (8.3-10.6); CARBON DIOXIDE LEVEL 30 MMOL/L (20-31); CHLORIDE LEVEL 105 MMOL/L (98-107); CREATININE FOR GFR 0.95 MG/DL (0.55-1.30); GLOMERULAR FILTRATION RATE > 60.0 (>45); GLUCOSE, FASTING 84 MG/DL (74-106); SODIUM LEVEL 141 MMOL/L (136-145); TOTAL PROTEIN 6.9 G/DL (5.7-8.2)
[2022-10-26 08:54] LABS: CARCINOEMBRYONIC ANTIGEN < 2.0 NG/ML (<2.5)
[2022-10-26 09:10] LABS: CA19-9 TUMOR MARKER,CARBOHYDRA 24.5 U/ML (<35.0)
[2023-04-30 08:08] LABS: BASO % 0.8 % (0.0-1.0); EOS # 0.1 10^3/uL (0.0-0.5); EOS % 1.5 % (0.0-3.0); HEMATOCRIT 42.1 % (36.0-47.0); HEMOGLOBIN 13.7 g/dl (12.0-15.5); LYMPH # 1.1 10^3/uL (1.5-5.0); LYMPH % 22.9 % (24.0-44.0); MEAN CORPUSCULAR HEMOGLOBIN 31.3 pg (27.0-33.0); MEAN CORPUSCULAR HGB CONC 32.5 g/dl (32.0-36.5); MEAN CORPUSCULAR VOLUME 96.1 fl (80.0-96.0); MONO # 0.3 10^3/uL (0.0-0.8); NEUTROPHILS # 3.2 10^3/uL (1.5-8.5); NEUTROPHILS % 67.6 % (36.0-66.0); PLATELET COUNT, AUTOMATED 150 10^3/uL (150-450); RED BLOOD COUNT 4.38 10^6/uL (4.00-5.40); WHITE BLOOD COUNT 4.7 10^3/uL (4.0-10.0)
[2023-04-30 08:12] VITALS: BP 124/83; O2SAT 97
[2023-04-30 08:31] LABS: ALBUMIN 3.7 G/DL (3.2-5.2); BILIRUBIN,TOTAL 0.7 MG/DL (0.3-1.2); CREATININE FOR GFR 1.03 MG/DL (0.55-1.30); GLOMERULAR FILTRATION RATE 57.8 (>45); POTASSIUM SERUM 3.9 MMOL/L (3.5-5.1)
[2023-12-17 11:50] VITALS: BP 136/85; O2SAT 100
[2024-04-09 08:26] VITALS: BP 139/81; O2SAT 99
[2024-04-09 09:44] LABS: BASO % 0.8 % (0.0-1.0); EOS # 0.1 10^3/uL (0.0-0.5); EOS % 1.5 % (0.0-3.0); HEMATOCRIT 40.3 % (36.0-47.0); HEMOGLOBIN 13.3 g/dl (12.0-15.5); LYMPH # 0.7 10^3/uL (1.5-5.0); MEAN CORPUSCULAR HEMOGLOBIN 31.9 pg (27.0-33.0); MEAN CORPUSCULAR VOLUME 96.6 fl (80.0-96.0); MONO # 0.4 10^3/uL (0.0-0.8); MONO % 8.5 % (2.0-8.0); NEUTROPHILS # 3.5 10^3/uL (1.5-8.5); NEUTROPHILS % 74.2 % (36.0-66.0); PLATELET COUNT, AUTOMATED 155 10^3/uL (150-450); RED BLOOD COUNT 4.17 10^6/uL (4.00-5.40); WHITE BLOOD COUNT 4.7 10^3/uL (4.0-10.0)
[2024-04-09 09:50] LABS: INR 0.94; PROTHROMBIN TIME 12.9 SECONDS (12.5-14.5)
[2024-04-09 10:06] LABS: FREE T4 1.24 NG/DL (0.89-1.76); THYROID STIMULATING HORMONE 4.341 uIU/ML (0.55-4.78)
[2024-05-22 08:14] VITALS: BP 131/82; O2SAT 100
[2024-05-22] MEDS: NS (Normal Saline) 0.9% 1,000 ML IV SCH ×2 (09:08→13:08)
[2024-05-22] MEDS: FOSAPREPITANT 150 MG, VIAL 2 BAG 13MM ADAPTER 1 EACH in NS 250 ML IV SCH (09:08)
[2024-05-22] MEDS: dexAMETHasone 4 MG/ML 1 ML VIAL IV SCH (09:09)
[2024-05-22] MEDS: PALONOSETRON 0.25 MG/5 ML VIAL IV SCH (09:09)
[2024-05-22] MEDS: SODIUM CHLORIDE 0.9% INJ 10 ML SYR IV PRN (14:10)
[2024-05-29 09:10] VITALS: BP 124/73; O2SAT 100
[2024-05-29] MEDS: FOSAPREPITANT 150 MG, VIAL 2 BAG 13MM ADAPTER 1 EACH in NS 250 ML IV SCH (09:35)
[2024-05-29] MEDS: dexAMETHasone 4 MG/ML 1 ML VIAL IV SCH (09:35)
[2024-05-29] MEDS: PALONOSETRON 0.25 MG/5 ML VIAL IV SCH (09:35)
[2024-05-29] MEDS: NS (Normal Saline) 0.9% 1,000 ML IV SCH ×2 (09:36→12:34)
[2024-06-11 07:59] VITALS: BP 136/79; O2SAT 97
[2024-06-11] MEDS: FOSAPREPITANT 150 MG, VIAL 2 BAG 13MM ADAPTER 1 EACH in NS 250 ML IV SCH (09:02)
[2024-06-11] MEDS: PALONOSETRON 0.25 MG/5 ML VIAL IV SCH (09:02)
[2024-06-11] MEDS: NS (Normal Saline) 0.9% 1,000 ML IV SCH ×2 (09:02→13:16)
[2024-06-11] MEDS: dexAMETHasone 4 MG/ML 1 ML VIAL IV SCH (09:03)
[2024-06-11] MEDS: NS IV SCH (10:20)
[2024-06-11] MEDS: DURVALUMAB IV SCH (10:20)
[2024-06-11] MEDS: SODIUM CHLORIDE 0.9% INJ 10 ML SYR IV PRN (14:21)
[2024-06-16] MEDS: FILGRASTIM SNDZ SC SCH (16:26)
[2024-06-16] MEDS: ONLY SC SCH (16:26)
[2024-06-17] MEDS: ONLY SC SCH (14:28)
[2024-06-17] MEDS: FILGRASTIM SNDZ SC SCH (14:28)
[2024-06-18] MEDS: FILGRASTIM SNDZ SC SCH (14:12)
[2024-06-18] MEDS: ONLY SC SCH (14:12)
[2024-06-19] MEDS: ONLY SC SCH (14:17)
[2024-06-19] MEDS: FILGRASTIM SNDZ SC SCH (14:17)
[2024-06-26 09:36] LABS: BASO % 0.6 % (0.0-1.0); EOS % 0.8 % (0.0-3.0); HEMATOCRIT 28.4 % (36.0-47.0); HEMOGLOBIN 9.5 g/dl (12.0-15.5); LYMPH # 0.6 10^3/uL (1.5-5.0); LYMPH % 12.7 % (24.0-44.0); MEAN CORPUSCULAR HEMOGLOBIN 33.2 pg (27.0-33.0); MEAN CORPUSCULAR HGB CONC 33.5 g/dl (32.0-36.5); MEAN CORPUSCULAR VOLUME 99.3 fl (80.0-96.0); MONO # 0.4 10^3/uL (0.0-0.8); MONO % 8.4 % (2.0-8.0); NEUTROPHILS # 3.6 10^3/uL (1.5-8.5); NEUTROPHILS % 76.9 % (36.0-66.0); PLATELET COUNT, AUTOMATED 114 10^3/uL (150-450); RED BLOOD COUNT 2.86 10^6/uL (4.00-5.40); WHITE BLOOD COUNT 4.7 10^3/uL (4.0-10.0)
[2024-06-26 09:47] VITALS: BP 110/65; O2SAT 100
[2024-06-26 10:49] LABS: ALBUMIN 2.7 G/DL (3.2-5.2); ALKALINE PHOSPHATASE 619 U/L (35-104); ALT/SGPT 116 U/L (7.0-40); AST/SGOT 125 U/L (<34); BILIRUBIN,DIRECT 1.4 MG/DL (<0.4); BILIRUBIN,TOTAL 2.2 MG/DL (0.3-1.2); BLOOD UREA NITROGEN 11 MG/DL (9-23); CALCIUM LEVEL 8.5 MG/DL (8.3-10.6); CARBON DIOXIDE LEVEL 25 MMOL/L (20-31); CHLORIDE LEVEL 105 MMOL/L (98-107); CREATININE FOR GFR 0.68 MG/DL (0.55-1.30); GLOMERULAR FILTRATION RATE > 90.0 (>45); GLUCOSE, FASTING 100 MG/DL (74-106); POTASSIUM SERUM 3.9 MMOL/L (3.5-5.1); SODIUM LEVEL 138 MMOL/L (136-145); TOTAL PROTEIN 6.3 G/DL (5.7-8.2)
[2024-06-26] MEDS: NS (Normal Saline) 0.9% 1,000 ML IV SCH ×2 (12:04→14:55)
[2024-06-26] MEDS: dexAMETHasone 4 MG/ML 1 ML VIAL IV SCH (12:22)
[2024-06-26] MEDS: PALONOSETRON 0.25 MG/5 ML VIAL IV SCH (12:22)
[2024-06-26] MEDS: FOSAPREPITANT 150 MG, VIAL 2 BAG 13MM ADAPTER 1 EACH in NS 250 ML IV SCH (12:23)
[2024-06-26] MEDS: EPOETIN ALFA 40000 UNIT/ML SC SCH (15:06)
[2024-06-26] MEDS: SODIUM CHLORIDE 0.9% INJ 10 ML SYR IV PRN (16:03)
[2024-07-03] MEDS: EPOETIN ALFA 40000 UNIT/ML SC SCH
[2024-07-03 08:47] LABS: BASO % 0.6 % (0.0-1.0); EOS % 0.4 % (0.0-3.0); HEMATOCRIT 27.6 % (36.0-47.0); HEMOGLOBIN 9.3 g/dl (12.0-15.5); LYMPH # 0.8 10^3/uL (1.5-5.0); LYMPH % 14.6 % (24.0-44.0); MEAN CORPUSCULAR HEMOGLOBIN 33.8 pg (27.0-33.0); MEAN CORPUSCULAR HGB CONC 33.7 g/dl (32.0-36.5); MEAN CORPUSCULAR VOLUME 100.4 fl (80.0-96.0); MONO # 0.9 10^3/uL (0.0-0.8); MONO % 16.3 % (2.0-8.0); NEUTROPHILS # 3.6 10^3/uL (1.5-8.5); NEUTROPHILS % 67.5 % (36.0-66.0); RED BLOOD COUNT 2.75 10^6/uL (4.00-5.40); WHITE BLOOD COUNT 5.4 10^3/uL (4.0-10.0)
[2024-07-03 09:09] LABS: PLATELET COUNT, AUTOMATED 86 10^3/uL (150-450)
[2024-07-09 09:10] VITALS: BP 124/76; O2SAT 98
[2024-07-09] MEDS: SODIUM CHLORIDE 0.9% INJ 10 ML SYR IV PRN (10:21)
[2024-07-17 08:23] VITALS: BP 125/76; O2SAT 98
[2024-07-23 14:58] VITALS: BP 116/72; O2SAT 99
[2024-07-24 09:16] LABS: BASO % 0.5 % (0.0-1.0); EOS # 0.1 10^3/uL (0.0-0.5); EOS % 1.6 % (0.0-3.0); HEMATOCRIT 30.9 % (36.0-47.0); HEMOGLOBIN 9.9 g/dl (12.0-15.5); LYMPH # 0.6 10^3/uL (1.5-5.0); LYMPH % 10.4 % (24.0-44.0); MEAN CORPUSCULAR HEMOGLOBIN 33.8 pg (27.0-33.0); MEAN CORPUSCULAR VOLUME 105.5 fl (80.0-96.0); MONO # 0.6 10^3/uL (0.0-0.8); NEUTROPHILS # 4.7 10^3/uL (1.5-8.5); NEUTROPHILS % 77.2 % (36.0-66.0); RED BLOOD COUNT 2.93 10^6/uL (4.00-5.40); WHITE BLOOD COUNT 6.1 10^3/uL (4.0-10.0)
[2024-07-24 09:19] LABS: PLATELET COUNT, AUTOMATED 91 10^3/uL (150-450)
[2024-07-24] MEDS: EPOETIN ALFA 40000 UNIT/ML SC SCH (09:59)
[2024-07-31 08:45] LABS: BASO % 0.5 % (0.0-1.0); EOS # 0.1 10^3/uL (0.0-0.5); EOS % 1.1 % (0.0-3.0); HEMATOCRIT 31.1 % (36.0-47.0); HEMOGLOBIN 10.1 g/dl (12.0-15.5); LYMPH # 0.6 10^3/uL (1.5-5.0); LYMPH % 8.8 % (24.0-44.0); MEAN CORPUSCULAR HEMOGLOBIN 33.7 pg (27.0-33.0); MEAN CORPUSCULAR HGB CONC 32.5 g/dl (32.0-36.5); MEAN CORPUSCULAR VOLUME 103.7 fl (80.0-96.0); MONO # 0.5 10^3/uL (0.0-0.8); MONO % 7.6 % (2.0-8.0); NEUTROPHILS # 5.4 10^3/uL (1.5-8.5); NEUTROPHILS % 81.7 % (36.0-66.0); WHITE BLOOD COUNT 6.6 10^3/uL (4.0-10.0)
[2024-07-31 08:50] LABS: PLATELET COUNT, AUTOMATED 16 10^3/uL (150-450)
[2024-07-31 09:25] LABS: ALBUMIN 2.4 G/DL (3.2-5.2); ALKALINE PHOSPHATASE 522 U/L (35-104); ALT/SGPT 64 U/L (7.0-40); AST/SGOT 84 U/L (<34); BILIRUBIN,TOTAL 3.8 MG/DL (0.3-1.2); BLOOD UREA NITROGEN 18 MG/DL (9-23); CARBON DIOXIDE LEVEL 24 MMOL/L (20-31); CHLORIDE LEVEL 104 MMOL/L (98-107); CREATININE FOR GFR 0.66 MG/DL (0.55-1.30); GLOMERULAR FILTRATION RATE > 90.0 (>45); GLUCOSE, FASTING 140 MG/DL (74-106); POTASSIUM SERUM 3.7 MMOL/L (3.5-5.1); SODIUM LEVEL 138 MMOL/L (136-145)
[2024-08-03 07:53] LABS: BASO # 0.1 10^3/uL (0.0-0.2); BASO % 0.7 % (0.0-1.0); EOS # 0.1 10^3/uL (0.0-0.5); EOS % 1.1 % (0.0-3.0); HEMATOCRIT 29.7 % (36.0-47.0); HEMOGLOBIN 9.5 g/dl (12.0-15.5); LYMPH # 0.7 10^3/uL (1.5-5.0); LYMPH % 7.8 % (24.0-44.0); MEAN CORPUSCULAR HEMOGLOBIN 33.9 pg (27.0-33.0); MEAN CORPUSCULAR VOLUME 106.1 fl (80.0-96.0); MONO # 0.6 10^3/uL (0.0-0.8); MONO % 7.3 % (2.0-8.0); NEUTROPHILS % 82.7 % (36.0-66.0); WHITE BLOOD COUNT 8.4 10^3/uL (4.0-10.0)
[2024-08-03 07:59] LABS: PLATELET COUNT, AUTOMATED 16 10^3/uL (150-450)
[2024-08-03] MEDS: diphenhydrAMINE 50 MG/ML VIAL IV ONE (09:12)
[2024-08-03 09:33] VITALS: BP 98/61; TEMP 97.9; O2SAT 100
[2024-08-03 10:42] VITALS: BP 104/66; TEMP 98.2; O2SAT 98
[2024-08-07 08:23] VITALS: BP 109/73; O2SAT 99
[~2024-08-14] VITALS: Ht 165.1 cm; Wt 64.5 kg
[~2024-08-14 08:22] MED LIST changes: -ELIQ5TAB; +ELIQ5TAB PO; +FILGRASTIM SNDZ 480 MCG/0.8 ML SC SCH; +FOSAPREPITANT 150 MG, VIAL 2 BAG 13MM ADAPTER 1 EACH in NS 250 ML IV SCH; +FOSAPREPITANT PERIPHERAL LINE 30 MIN INFUSION (PREMIX) IV ONE; +FOSAPREPITANT PERIPHERAL LINE 30 MIN INFUSION IV ONE; +LIDO1ADH93 TOP; +NS (Normal Saline) 0.9% 1,000 ML IV SCH; +ONLY SC SCH; +PALONOSETRON 0.25 MG/5 ML VIAL IV SCH; +SODIUM CHLORIDE 0.9% INJ 10 ML SYR IV PRN; +SPIR-10 PO; +dexAMETHasone 4 MG/ML 1 ML VIAL IV SCH
[2024-08-14 08:27] VITALS: BP 92/61; O2SAT 94
[2024-08-14 09:18] LABS: BASO % 0.1 % (0.0-1.0); EOS % 0.1 % (0.0-3.0); HEMATOCRIT 25.8 % (36.0-47.0); HEMOGLOBIN 8.3 g/dl (12.0-15.5); LYMPH # 0.8 10^3/uL (1.5-5.0); LYMPH % 5.2 % (24.0-44.0); MEAN CORPUSCULAR HEMOGLOBIN 33.1 pg (27.0-33.0); MEAN CORPUSCULAR HGB CONC 32.2 g/dl (32.0-36.5); MEAN CORPUSCULAR VOLUME 102.8 fl (80.0-96.0); MONO # 0.8 10^3/uL (0.0-0.8); MONO % 5.4 % (2.0-8.0); NEUTROPHILS # 12.7 10^3/uL (1.5-8.5); NEUTROPHILS % 88.2 % (36.0-66.0); RED BLOOD COUNT 2.51 10^6/uL (4.00-5.40); WHITE BLOOD COUNT 14.4 10^3/uL (4.0-10.0)
[2024-08-14 09:22] LABS: PLATELET COUNT, AUTOMATED 24 10^3/uL (150-450)
[2024-08-14 09:32] LABS: INR 2.92; PARTIAL THROMBOPLASTIN TIME 33.9 SECONDS (24.8-34.2); PROTHROMBIN TIME 30.4 SECONDS (12.5-14.5)
[2024-08-14 11:01] LABS: ALBUMIN 2.1 G/DL (3.2-5.2); BILIRUBIN,TOTAL 11.8 MG/DL (0.3-1.2); CALCIUM LEVEL 7.6 MG/DL (8.3-10.6); CREATININE FOR GFR 0.82 MG/DL (0.55-1.30); GLOMERULAR FILTRATION RATE 80.3 (>45); POTASSIUM SERUM 4.1 MMOL/L (3.5-5.1); TOTAL PROTEIN 5.6 G/DL (5.7-8.2)
[2024-08-21] MEDS ORDERED: NS (Normal Saline) 0.9% 1,000 ML IV SCH ×2
[2024-08-21] MEDS ORDERED: PALONOSETRON 0.25 MG/5 ML VIAL IV SCH
[2024-08-21] MEDS ORDERED: FOSAPREPITANT 150 MG, VIAL 2 BAG 13MM ADAPTER 1 EACH in NS 250 ML IV SCH
[2024-08-21] MEDS ORDERED: dexAMETHasone 4 MG/ML 1 ML VIAL IV SCH
== END 2024-08-20 | disposition expired ==
LOC: M ONCM 08:22
PROVIDERS: ATTEND Specialist
DX: Z51.11 Encounter for antineoplastic chemotherapy (principal); C23 Malignant neoplasm of gallbladder; C78.7 Secondary malignant neoplasm of liver and intrahepatic bile duct; M89.8X8 Other specified disorders of bone, other site; Z86.718 Personal history of other venous thrombosis and embolism; Z86.711 Personal history of pulmonary embolism; Z85.3 Personal history of malignant neoplasm of breast; K83.8 Other specified diseases of biliary tract; D69.59 Other secondary thrombocytopenia; Z79.01 Long term (current) use of anticoagulants; Z79.899 Other long term (current) drug therapy; Z92.3 Personal history of irradiation; E80.6 Other disorders of bilirubin metabolism; R74.01 Elevation of levels of liver transaminase levels; D64.81 Anemia due to antineoplastic chemotherapy; D63.0 Anemia in neoplastic disease
CPT/HCPCS: 36415; 36430; 36591; 80053; 82248; 82378; 82607; 82728; 82746; 83010; 83520; 83550; 83615; 83735; 84439; 84443; 85025; 85027; 85049; 85055; 85610; 85730; 86301; 86850; 86900; 86901; 96366; 96367; 96368; 96372; 96374; 96375; 96413; 96415; 96417; 96523; G0463; J0885; J1100; J1200; J1442; J1453; J1642; J2150; J2469; J3475; J9060; J9173; J9201; P9034; Q5101